=== PATIENT | female | born 1975 | race Caucasian/White ===

== ENCOUNTER 2025-05-20 03:11 | Emergency (ER) | payer OTHER, SELFPAY ==
[2025-05-20] VITALS (10 sets, daily range): BP systolic 108–134; BP diastolic 52–79; PULSE 58–82; RESP 16–18; TEMP 36.4; O2SAT 98–100
--- NOTE | ~2025-05-20 | US_ITS ---
EXAM/PROCEDURE: US transvaginal HISTORY: aub, rlq abd pain COMPARISON: None available. TECHNIQUE: Endovaginal pelvic ultrasound performed LMP: None provided. Heavy bleeding x2 weeks. FINDINGS: The uterus measures 7.9 x 4.6 and 4.9 cm Endometrial stripe: 11.5 mm Nabothian cysts are noted in the cervix and the uterus is heterogeneous in echotexture. Trace amount of fluid in the endometrial canal. Echogenic focus also noted in the fundal portion of uterus measuring 1.4 cm. Right ovary: 2.5 x 1.1 x 2.1 cm. The right ovary appears normal in echotexture and vascular flow. Left ovary: Not visualized. No adnexal mass seen in the images labeled left adnexa. Small amount of free fluid in the posterior cul-de-sac. IMPRESSION: Thickened endometrial stripe with trace amount of fluid of uncertain significance. If endometrial biopsy is not indicated, follow-up pelvic ultrasound in 6-8 weeks recommended or sooner if clinically appropriate. Reviewed, dictated and finalized at location A. H GRADE TEACHER IMPRESSION: Thickened endometrial stripe with trace amount of fluid of uncertain significan ce. If endometrial biopsy is not indicated, follow-up pelvic ultrasound in 6-8 weeks recommended or sooner if clinically appropriate.
--- OUTSIDE RECORDS SUMMARY | 2025-05-20 03:12 | XMS_ITS | Continuity of Care Document ---
Author Name [facility] Organization [facility] Care Team Providers Care Superintendent Automotive Name Role Phone [facility] Unavailable Unavailable Immunizations Combined list of available immunizations from the Department of Defense and Veterans Affairs facilities. Immunization Series Date Given Administered By Site Reaction Lot Number CVX Code Drug Lay Brother Status Comments Source influenza, injectable, quadrivalent, preservative free 2019 ALUL, () Not Given influenza , injectabl e, quadrival ent, preservat rene free [facility] Social History Combined list of available smoking, tobacco, and other social history from Department of Defense and Veterans Affairs facilities. Social History Type Response Date Comment Sour e This section is an empty social history section. [facility]D
--- OUTSIDE RECORDS SUMMARY | 2025-05-20 03:13 | XMS_ITS | Encounter Summary ---
Author Organization [facility] Address [address] [place] [address] Care Team Providers Care Urologist Name Role Phone Quintin Stevenson MD Primary Care Provider [phone] Encounter Details Date Type Department Care Team (Late st Contact Info) Description 11/28/2021 Lab Requisition [facility] [address] [place] [address] Max Junior MD 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 Gender Identity Not on file Sexual Orientation Not on file documented as of this encounter Plan of Treatment Not on file documented as of this encounter Procedures Procedure Name Priority Date/Time Associated Diagnosis Comments DERMATOPATHOLOGY Routine 11/27/2021 12:0 0 AM CDT documented in this encounter Results * DERMATOPATHOLOGY (11/27/2021 12:00 AM CDT) Case Report Dermatopathology Report Case: [id number] Authorizing Provider: Max Junior MD Collected: 11/27/2021 12:00 AM Ordering Location: [facility] Received: 11/28/2021 05:03 PM Pathologist: Henny Singleton MD Specimen: Skin, nasal tip 9:45 AM CDT DERMATOPATHOLOGY LABORATORY Final Diagnosis Specimen A. 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 Path # [id number]. 9:45 AM CDT DERMATOPATHOLOGY LABORATORY Gross Description Specimen A: Received is one formalin filled container labeled with the patient's name and designated nasal tip. The specimen consists of a shave biopsy measuring [id number]. Jar 0. 9:45 AM CDT DERMATOPATHOLOGY LABORATORY Microscopic Description Specimen A. SKIN, nasal tip: There is focal parakeratosis. The lower half of the epidermis shows disorderly maturation of keratinocytes with nuclear pleomorphism. This process extends to the base of the specimen. Adnexal extension of the lesion is seen. Additional deeper sections were obtained and reviewed. COMMENT: A squamous cell carcinoma cannot be ruled out. 9:45 AM CDT DERMATOPATHOLOGY LABORATORY Disclaimer An external and internal positive and negative controls are appropriate for the histochemical, immunohistochemical and immunofluorescence stain(s) in this case (if any), except where stated explicitly. The performance characteristics of the stain(s) cited in this report were developed and its performance characteristic determined by the Dermatopathology Laboratory at [facility], directed by Dr. Rhina Hurley. These tests need not be, and therefore are not, approved by the [place] Food and Drug Administration. The tests are used for clinical purposes. Billing Codes Specimen Charges Stain Charges 78493 1 2 9:45 AM CDT DERMATOPATHOLOGY LABORATORY Embedded Images 9:45 AM CDT DERMATOPATHOLOGY LABORATORY Pathology/Cytolog y TISSUE SPECIMEN FROM SKIN / Unknown 11/27/2021 11/28/2021 5:03 PM CDT us Max Junior MD LAB - PATHOLOGY/CYTOLOGY ORDER MAXIMO Final Result DERMATOPATHOLOGY LABORATORY [facility] - Department of Dermatology [address], [address] [phone] documented in this encounter Visit Diagnoses Not on filedocumented in this encounter Care Teams Urologist Relationship Specialty Start Date End Date Quintin Stevenson MD [address] [address] [place] [address] PCP - General 11/28/21 documented as of this encounter
--- OUTSIDE RECORDS SUMMARY | 2025-05-20 03:13 | XMS_ITS | Clinical Summary ---
Author Organization [facility] Address [address] [address] Care Team Providers Care Merchandising Coordinator Name Role Phone Quintin Stevenson MD Primary Care Provider [phone] Source Comments [facility],non-owned Affiliates and Associated Physician Practices is amultiple site organization consisting of ambulatory clinics and hospital sitesin [place], [place], [place] and [place]. This disclosure is being madepursuant to the Care Everywhere program and may not contain all information available regarding this patient. 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 Gender Identity Not on file Sexual Orientation Not on file Plan of Treatment Health Maintenance Due Date Last Done Comments COLOGUARD (AGES 45-75) - COL ON CA SCREENING 1973 COLON MONITORING 1973 COLONOSCOPY - COLON CA SCREENING 1973 CT COLONOGRAPHY - COLON CA SCREENING 1973 Colorectal Cancer Screening 1973 FIT - COLON CA SCREENING 1973 FLEX SIG - COLON CA SCREENING 1973 LIPID TESTING 1973 MAMMOGRAM 1973 HIV SCREENING 1988 HEPATITIS C SCREENING 10/12/1991 DTAP/TDAP/TD VACCINES (1 - Tdap) 1992 HEPATITIS B VACCINE (1 of 3 - 19+ 3-dose series) 1992 PAP SMEAR 1994 Cervical Cancer Screening 10/17/2003 PAP with HPV 10/17/2003 PNEUMOCOCCAL VACCINE 50+ (1 of 1 - PCV) 10/17/2023 ZOSTER VACCINE (1 of 2) 10/17/2023 DEPRESSION SCREENING 07/07/2024 COVID-19 VACCINE (1 - 2024-2 6 season) 2025 INFLUENZA VACCINE (#1) 2025 HIB VACCINE Aged Out No longer eligi ble based on patient's age to complete this topic HPV VACCINE Aged Out No longer eligi ble based on patient's age to complete this topic MENINGOCOCCAL (Group B) VACC INE SHARED DECISION-MAKING Aged Out No longer eligibl e based on patient's age to complete this topic MENINGOCOCCAL GROUPS A/C/Y/W VACCINE Aged Out No longer eligible b ased on patient's age to complete this topic Insurance Care Teams Merchandising Coordinator Relationship Specialty Start Date End Date Quintin Stevenson MD [address] [address] [place] [address] PCP - General 11/28/21
--- OUTSIDE RECORDS SUMMARY | 2025-05-20 03:13 | XMS_ITS | Clinical Summary ---
Author Organization [facility] Address [address] [place] [address] Care Team Providers Care Worship Leader Name Role Phone Giuseppe Pratt MD Unavailable [phone] BLAISE Pryor Jr., Maxime Foreman Primary Care Provide r Tran Londono MD Unavailable [phone] Allergies Active Allergy Reactions Criticality Noted Date Comments Leflunomide Rash Medium 09/29/2023 Per chart notes Penicillins Hives,Rash Medium 12/19/2008 Medications sulfaSALAzine (AZULFIDINE) 500 mg tabletIndicati ons:Crohn's Disease Take 2 tablets (1,000 mg total) by mouth 2 (two) times a day 360 tablet 3 4 Active syringe with needle (Monoject Syringe) 3 mL 25 x 5/8 syringe Inject b12 1000mcg under the skin every 30 days 3 each 3 4 Active Additional Information Patient not taking.Reported on 05/17/2025 insulin syringe-needle U-100 (Monoject Syringe) 1/2 mL 28 gauge syringe 4 Active BD Integra Syringe 3 mL 25 gauge x 5/8 syringe USE TO INJECT B12 1000MCG UNDER THE SKIN EVERY 30 DAYS 4 Active ondansetron (ZOFRAN) 4 mg tabletIndicati ons:nausea Take 1 tablet (4 mg total) by mouth every 8 (eight) hours as needed for nausea or vomiting 20 tablet 3 4 Active ketorolac (TORADOL) 10 mg tabletIndicati ons:Severe Pain Take 1 tablet (10 mg total) by mouth every 6 (six) hours as needed for pain 20 tablet 1 4 Active Additional Information Patient not taking.Reported on 05/17/2025 ALPRAZolam (XANAX) 0.25 mg tablet Take 1 tab 30 minutes prior to MRI, may repeat once. Do not drive after use. 2 tablet 4 Active Additional Information Patient not taking.Reported on 05/17/2025 cyanocobalamin (Vitamin B-12) 1,000 mcg/mL injectionIndic ations:Vitamin B12 deficiency Inject 1 mL (1,000 mcg total) under the skin every 30 (thirty) days 6 mL 1 4 Active syringe with needle 1 mL 28 gauge x 1/2 syringeIndicat ions:Vitamin B12 deficiency 1 Needle every 30 (thirty) days Please use 1 needle every 30 days to inject Vitamin B 12 injection 12 each 4 Active Additional Information Patient not taking.Reported on 05/17/2025 fluocinolone in oil (DermOtic) 0.01 % drops 5 Active polyethylene glycol [id number] -5.86 gram solution Day before testing: starting at 4 pm drink one 8 oz glass every 15 minutes for a total of 64 oz. Day of testing: Drink remaining 64 oz six to eight hours prior to procedure. 4000 mL 5 Active ubrogepant (Ubrelvy) 100 mg tablet TAKE 1 TABLET(100 MG) BY MOUTH 1 TIME NEEDED FOR MIGRAINE. MAY REPEAT DOSE 1 TIME IN 2 HOURS IF NO RELIEF. DO NOT EXCEED 2 DOSES IN 24 HOURS 10 tablet 2 5 Active ustekinumab (Stelara) 90 mg/mL syringe Inject 1 mL (90 mg total) under the skin every 4 (four) weeks Safety labs are required every 6 months for refills. Next labs are due 09/2025. 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 If she continues to have a lot of bloating, we could consider an empiric course of antibiotics as she has previously struggled with SIBO. We would still recommend a low residue diet. Small bowel obstruction 11/05/2022 Major depressive disorder, r ecurrent episode, in full remission 09/24/2022 Healthcare maintenance 05/07/2022 Overview (02/25/2023): Immunizations: Influenza yes Pneumococcus recommend prevnar 20 Zoster rec shingrix HBV vaccinated Covid yes Cervical cancer screening: routine follow up with director of partner marketing Skin cancer screening: follows with derm for psoriasis Bone health: DEXA: normal 2022. Vitamin D normal 2022 CRC screening: only ileal disease, but FH. Q 5 years but will likely get more often for disease activity. Assessment & Plan (02/25/2023 11:40 AM CDT): She is going to check with her PCP for shingrix and prevnar 20 Assessment & Plan (08/20/2022 9:30 AM LOAN EXPEDITOR): Schedule c scope Assessment & Plan (05/07/2022 11:13 AM CDT): Check vitamin D DEXA Recommend covid booster, shingrix, prevnar 20 Crohn's disease of small intestine without compl ication 03/06/2022 Overview (07/13/2024): Year of diagnosis: 2019. Year symptoms began: 2019. Phenotype: Inflammatory (B1) without perianal disease. Distribution: ileal (L1) without upper GI disease (L4). Extraintestinal manifestations: Juvenile arthritis, psoriasis (both preceded Crohn's diagnosis). Complications: partial SBO 2018. Prior surgeries: None. Prior treatments: Budesonide (also treated with Humira for BRANDY and psoriasis prior to Crohn's diagnosis). Current treatment: Stelara q 8 weeks. TPMT: ? 2019 EGD showed gastric ulcer while on NSAIDs Seen by [facility] for longstanding bloating, constipation 08/02/2011 EGD normal Path: normal stomach and duodenal biopsies Breath test apparently positive for SIBO. Treated with rifaxamin with improvement. 2018 developed Fe def anemia. 08/25/2018 EGD normal Path Duodenum normal Stomach: chronic antral gastritis, unspecified, mild. No acute inflammation. H pylori negative. 08/25/2018 Colonoscopy A few erosions at ICV A few ulcers in the TI Normal colon Path: Ileum: ulceration with mixed inflammation ICV: active chronic ileitis Colon: normal 09/29/2018 VCE Several erosions and ulcers in the distal ileum. Remainder of small bowel normal. Prometheus testing not suggestive of Crohn's. Thought ileal inflammation was due to NSAIDs 01/11/2019 admitted with partial SBO. Treated conservatively with NGT. No steroids. Thought d/t adhesions from CCK. 01/09/2019 CT IMPRESSION: 1. Multiple mildly dilated loops of fluid-filled small bowel, predominantly midline abdomen to left mid abdomen, favoring a partial small-bowel obstruction with transition point likely in the left upper quadrant-left mid abdomen with an associated small volume of abdominopelvic free fluid. 2. Cholecystectomy. 03/2019 breath test apparently negative for SIBO. Treated with budesonide for 3 months with follow up CTE. 08/05/2019 CTE Wall thickening of the terminal ileum may reflect chronic inflammation. Segment of ileum immediately proximal to this is completely decompressed. A stricture cannot be excluded. No acute surrounding inflammation. No definite abscess. 11/26/2019 Colonoscopy A few ulcers in the TI Normal colon Path: TI: ileitis with erosions The TI biopsy shows mild mixed inflammation with erosions. No granulomas. 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 However, similar findings may also be seen in Crohn's. Colon: normal 12/13/2019 Switched from Orencia to Stelara to treat Crohn's, RA and psoriasis 08/07/2020 Colonoscopy Normal TI Normal colon Path: normal TI biopsies and normal colon biopsies /11/06/2021 Still some abdominal discomfort, diarrhea. Low Fe. Treated with 3 months of budesonide with plans for follow up CTE. 03/05/2022 CTE No evidence of acute inflammation. Mild fat deposition in the terminal ileum which is probably sequela from prior inflammation seen on prior CT. The previously seen inflammatory changes have resolved. There is no stricture or evidence of obstruction. No skip lesions. No hyperenhancing or hypoenhancing segments. 03/19/2022 FC 52 07/28/2022 admitted with SBO Treat with NG, IV steroids, discharged on prednisone 07/28/2022 CT GI: Diffuse moderate fluid distention of small-bowel with transition point in the right lower quadrant on series 2, image 127. Distal to the transition point, small bowel loops are decompressed with mild wall thickening to the level of the ileocecal valve. Normal appendix. No significant diverticular disease. IMPRESSION: 1. Small-bowel obstruction with transition point in the right lower quadrant in the distal ileum, possibly secondary to fibrostenotic Crohn's disease. This was relayed to Cassandra WELSH at 5:25 p.m. on 07/28/2022. 09/03/2022 Ustekinumab level 6.4 10/25/2022 Colonoscopy Normal TI. No stricture. Normal colon. Colon biopsies normal. 11/05/2022 Admit for SBO 11/05/2022 CT 1. Mild severity small bowel obstruction at distal ileal stricture. The active inflammation noted on the prior July 2022 examination has resolved/improved. There may be mild/borderline active inflammation at the stricture transition point. Overall the degree of bowel dilation is improved compared to July 2022. On further review, there is an area of mid to distal ileum that is mildly hyperenhancing and consistent with active inflammation. This is noted in just the left of midline on image 172. It does not have stricture level dilation upstream of this. The stricture described in the original report is approximately 20 to 25 cm from the ileocecal valve. Overall, this is consistent with skip Crohn inflammation with the stricture as transition point of this mild small bowel obstruction. The degree of active inflammation, as before, has improved since the July 2022 prior. Improved without steroids 11/08/2022 Lower Device-Assisted Enteroscopy without Fluoroscopy The ileum, 25 cm from the ileocecal valve and ileum, 40 cm from the ileocecal valve contained a benign-appearing, intrinsic moderate stenosis measuring less than one cm (in length) x 9 mm (inner diameter). The distal stricture was dilated. A TTS dilator was passed through the scope. Dilation with a 12-13.5-15 mm colonic balloon dilator was performed. Biopsies were taken with a cold forceps for histology. The stricture was traversed. However, the proximal stricture could not be dilated due to scope angulation and inability to pass the TTS balloon down the working channel. Biopsies were taken. Area 5 cm distal to the more distal stricture was tattooed with an injection of 3 mL of [place]il[place] ink. Multi-focal short segment ileal strictures in the ileum, 25 cm from the ileocecal valve and in the ileum, 40 cm from the ileocecal valve. The distal stricture was dilated to 15 mm, however the more proximal stricture could not be intervened on due to inability to pass the TTS balloon through the working channel (secondary to scope angulation). Strictures were biopsied. An area 5 cm distal to the distal stricture was tattooed. Path A. Small bowel, proximal stricture, biopsy - Small intestinal mucosa with mild reactive epithelial changes B. Small bowel, distal stricture, biopsy - Small intestinal mucosa with acute ileitis and ulceration Tolerating low residue diet Discuss sine MRI to evaluate strictures 05/22/2023 SBE - Multifocal short segment ileal strictures located 20 cm, 40 cm, and 45 cm from the ileocecal valve with skip area of normal mucosa. These could be seen with Crohn's ileitis, NSAID use, or other etiology. Dilated to 14-15 mm and biopsied. - Limited colonoscopic examination revealed normal mucosa throughout visualized portations. Path A. Small intestine, terminal ileum, biopsy: - Ileal mucosa with mildly dilated lacteals, otherwise with no significant abnormality. B. Small intestine, ileum, proximal stricture, biopsy: - Ileal mucosa with no significant abnormality. C. Small intestine, ileum, middle stricture, biopsy: - Ileal mucosa with active ileitis (ulceration and cryptitis). - Results of cytomegalovirus (CMV) immunostain will be reported in an addendum. D. Small intestine, ileum, distal stricture, biopsy: - Ileal mucosa with inactive chronic ileitis with crypt distortion and focal pyloric gland metaplasia. Diagnosis Comment The patient's clinical history of ulcerative colitis is noted. All biopsies are negative for dysplasia and granulomas. Part A: The histologic finding of dilated lacteals, although nonspecific, have been associated with obstruction. 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 05/24/2024 Retrograde balloon enteroscopy - Crohn's ileitis (SES-CD:6) with multifocal strictures in the distal ileum (described above) with improved caliber following prior dilation. Further treatment was performed at all sites to 15 mm. Path A. Ileal stricture, biopsy - Small intestinal mucosa with mildly active chronic ileitis. B. Terminal ileum, biopsy - Small intestinal mucosa with no significant pathologic change. C. Right colon, biopsy - Colonic mucosa with no significant pathologic change. D. Left colon, biopsy - Colonic mucosa with no significant pathologic change. Assessment & Plan (02/01/2025 5:27 PM CDT): The patient had 3 strictures dilated to 15 mm on her May 24, 2024 colonoscopy. As she is having some troubles with constipation and bloating again, we would plan to repeat her colonoscopy again in May. As this was previously done by Dr. Zane Aguilera, we will see if 1 of our advanced endoscopist can perform this procedure. We would recommend that she continue Stelara and sulfasalazine for the foreseeable future. If she appears to be failing this therapy, she may benefit from an IL 23 inhibitor like Skyrizi or Tremfya. We will continue to monitor her labs per protocol She can try using a soluble fiber, increasing her fluids, and using a tsp of MiraLax daily and adjusting the dose to her needs Assessment & Plan (07/13/2024 4:02 PM LOAN EXPEDITOR): Endoscopic remission on stelara with primarily fibrotic strictures that have been successfully dilated. Continue stelara indefinitely. Repeat enteroscopy with dilation with Dr. Degroot in one year as planned. Assessment & Plan (01/06/2024 2:11 PM CDT): Clinical remission on stelara. No more obstructive symptoms after dilations. Continue stelara. Repeat c scope in May with Dr. Zane for repeat dilation. 2 day prep. Extra miralax for 2 weeks prior. Assessment & Plan (06/17/2023 1:26 PM LOAN EXPEDITOR): Asymptomatic after stricture dilation. Tolerating more foods. Discussed that this could be Crohn's, Cryptogenic multifocal ulcerous stenosing enteritis (CMUSE) or residual strictures from years of heavy NSAID use. Will ask our pathologist to review. Regardless, will treat the same. The mucosa between the strictures is normal and stelara is controlling arthritis and psoriasis, so she should continue. Will repeat scope with dilations one year from the last one. MRE without prestenotic dilation so predicts good response to dilation. If she has another obstruction, will discuss resection. RTC 6 mos. Assessment & Plan (02/25/2023 1:16 PM CDT): Stricturing ileal Crohn's with multiple SBOs. She is still having mild obstructive symptoms and is still on a low residue diet. Her balloon enteroscopy showed two strictures, only one of which could be dilated because of issues reaching the proximal one. MRE shows only one stricture without upstream dilation even on CINE images. This is good but it doesn't mean she won't obstruct with a heaver diet. Based on the endoscopic appearance and imaging I think these are likely predominantly fibrotic. The rest of the ileum looks normal and ustekinumab is controlling her arthritis so I don't want to switch unless I was sure it wasn't working. I think the stricture has probably been there for years when she had previous obstructions, it was just missed because it was too proximal. I discussed three options 1) do nothing until if/when she obstructs, 2) refer for SBR (this would likely be a small resection but obviously always carries risks), or 2) repeat a balloon enteroscopy with dilation. I recommend #3 and she that is what she prefers. I discussed her case with Dr. Aguilera and Dr. Vasquez. -Continue ustekinumab -Will reach out to Dr. Aguilera for repeat dilation -RTC 4 mos Assessment & Plan (11/25/2022 1:30 PM CDT): I think these are fibrotic strictures and I think they have been there for awhile, they just were unable to be reached with a regular colonoscope. The distal one may have even been from NSAIDs because it has a diaphragm appearance. Regardless, she has documented ileal ulcers well after a year off of NSAIDs, and this ileitis resolved after she went on Stelara. So I think Stelara is working. The fact that the obstruction resolved without steroids is consistent with this. She has two strictures. The distal one was dilated to 15 mm, the balloon couldn't be delivered to the proximal one. It's unclear if the dilation helped because she hasn't advanced her diet. We discussed with Dr. Degroot and radiology. We are going to do an MRE with specialized sequences to see if we can get a sense of the significance of both. Depending on the results we may try dilating the proximal one or advancing diet and if she obstructs send to surgery. They are pretty far from each other and in between the bowl looks good, so if she needs surgery maybe to small SBR or stricturoplasties will suffice. Assessment & Plan (08/20/2022 9:32 AM LOAN EXPEDITOR): Recent admit with SBO with transition point in distal ileum. Resolved with steroids. Given imaging findings suspect this was from active Crohn's rather than adhesions. The fact that her recent CTE showed no prestenotic dilation and she improved with steroids suggests significant inflammatory component rather than a fibrotic stricture. So hopefully can avoid surgery, though I discussed with her this may be needed in future. Will continue steroid taper and schedule a colonoscopy after. Check stelara level to see if she has antibodies given low level previously. -Continue steroid taper by 5 mg/week -Check stelara level -Schedule colonoscopy -Check Fe levels. She was anemic in the hospital. She has had low Fe with active disease in the past. -Continue low residue diet -Refer to GI psychologist Assessment & Plan (05/07/2022 3:31 PM CDT): In remission based on imaging. Anemia has resolved. Continue Stelara q 4 weeks. If she continues to do well will likely do another colonoscopy next year. Assessment & Plan (03/06/2022 12:01 PM CDT): Ileal Crohn's complicated by Fe def anemia and partial SBO. She continues to have what sounds like obstructive symptoms which could indicate a stricture or active inflammation. I agree with the CTE that she is getting today. Will also check a Stelara level to see if there is room to go up. Pending the CTE will recommend a colonoscopy. If there is a stricture it may respond to dilation. I discussed a low residue diet. She can get the colonoscopy with her local GI or with us. Her interventional radiology technologist is prescribing Stelara. If she has inflammation will need to have discussion with rheum since Stelara seems to be controlling her other autoimmune diseases. Iron deficiency anemia 10/02/2020 Assessment & Plan (08/20/2022 9:28 AM LOAN EXPEDITOR): Has required IV Fe in the past. Follows with heme. Check Fe levels. She was anemic in the hospital Assessment & Plan (03/06/2022 11:43 AM CDT): Suspect GI loss from Crohn's. Celiac serology negative and duodenal biopsies negative on multiple occasions. Has not had IV Fe in awhile and last c scope looked ok so hopefully Stelara is working. Getting CT and C scope to assess. Follow up with hematology for Fe infusions as needed. Hx SBO 01/18/2019 Assessment & Plan (01/18/2019 12:54 PM CDT): Continue to follow with GI Stay hydrated Update with us with any changes Call for questions or concerns Acute deep vein thrombosis (DVT) of right upper extremity 01/18/2019 Assessment & Plan (01/18/2019 12:55 PM CDT): Continue eliquis With RUE DVT, may need anticoagulation for 6 months Recheck in 3-6 months Call for questions or concerns Partial small bowel obstruction 01/18/2019 Assessment & Plan (01/18/2019 1:53 PM CDT): Continue to follow with GI Continue to monitor symptoms Call if symptoms change or worsen Psoriatic arthritis 06/09/2018 Assessment & Plan (11/25/2022 1:34 PM CDT): Controlled on stelara. I don't want to switch unless it clearly is not working for her crohn's or psoriatic arthritis. BRANDY (juvenile idiopathic arthritis) 03/17/2018 Assessment & Plan (02/01/2025 5:24 PM CDT): The patient will continue to follow closely with rheumatology. Assessment & Plan (07/13/2024 4:02 PM LOAN EXPEDITOR): Stable. Follows with rheum. Acquired hallux valgus 04/26/2015 Neck pain 03/06/2015 Psoriasis 08/22/2014 Arthralgia of ankle 05/31/2013 Gastroesophageal reflux disease 06/25/2011 High risk medications (not anticoagulants) long- term use 11/03/2010 Assessment & Plan (02/01/2025 5:25 PM CDT): The patient is encouraged to continue close follow-up with her care team and stay up-to-date vaccinations. Hopefully her blood work for Hematology can be coordinated with our blood work as there is likely some overlap. Assessment & Plan (07/13/2024 12:57 PM LOAN EXPEDITOR): All immunosuppressants carry a theoretical risk of infection, though ustekinumab is among the safest. We recommend the patient get all available vaccinations, including the pneumococcus series, covid19 and annual influenza. We monitor CBC and HFP q 3 months for cytopenias and hepatotoxicity. Assessment & Plan (01/06/2024 11:31 AM CDT): All immunosuppressants carry a theoretical risk of infection, though ustekinumab is among the safest. We recommend the patient get all available vaccinations, including the pneumococcus series, covid19 and annual influenza. We monitor CBC and HFP q 3 months for cytopenias and hepatotoxicity. Assessment & Plan (06/17/2023 1:20 PM LOAN EXPEDITOR): All immunosuppressants carry a theoretical risk of infection, though ustekinumab is among the safest. We recommend the patient get all available vaccinations, including the pneumococcus series, covid19 and annual influenza. We monitor CBC and HFP q 3 months for cytopenias and hepatotoxicity. Assessment & Plan (02/25/2023 11:41 AM CDT): Risk of infection with stelara. Monitor cbc, cmp for toxicity. Minimize steroids. Assessment & Plan (08/20/2022 9:28 AM LOAN EXPEDITOR): Risk of infection with stelara. Monitor cbc, cmp for toxicity. Tapering steroids to minimize toxicity. Assessment & Plan (05/07/2022 3:32 PM CDT): On Stelara. Low risk of infection. Monitor CBC, HFP for toxicity. Rheumatoid arthritis 11/03/2010 Assessment & Plan (01/18/2019 1:53 PM CDT): Continue to follow with Rheumatology Call for questions or concerns Resolved Problems Problem Noted Date Diagnosed Date Resolved Date Crohn's disease of both smal l and large intestine with other complication 04/18/20232024 Social anxiety disorder 09/24/202203/07 Generalized anxiety disorder 09/24/2022 03/20/2023 Crohn's disease with complic ation, unspecified gastrointestinal tract location 07/28/2022 02/03/2023 Iron deficiency anemia due t o chronic blood loss 02/18/2019 02/03/2023 Anxiety 01/18/2019 02/03/2023 Assessment & Plan (01/18/2019 12:55 PM CDT): Will do a trial of atarax Consider buspar if no improvement Use support structures she has in place Call for questions or concerns Stress 12/10/2016 11/26/2022 03/20/2023 Need for immunization against influenza 06/19/2015 02/03/2023 Encounter for preventive health examination 12/16/2008 02/03/2023 Encounters Date Type Department Care Team Description 05/17/2025 10:00 AM LOAN EXPEDITOR Lab [address] [address] Iron deficiency anemia due to chronic blood loss; Vitamin B12 deficiency 05/17/2025 9:45 AM LOAN EXPEDITOR Office Visit [facility] Medicine Obstetrics and Gynecology [address] [facility] [address] [place] [address] Abbey Ballard NP Encounter for well woman exam with routine gynecological exam (Primary Dx); Encounter for screening mammogram for malignant neoplasm of breast; Genitourinary syndrome of menopause 05/16/2025 Telephone [facility] [address] [place] [address] Tete Matthews, RN GI Preprocedure 04/22/2025 1:46 PM CDT - 04/22/2025 11:59 PM CDT Hospital Encounter [facility] [address] [place] [address] Postmenopausal bleeding Discharge Disposition: Discharge to home or self care 04/21/2025 Telephone [facility] Neu[facility] [address] [facility] [facility] [address] [place] [id number] Katie Quinones NP Prior Auth (Ubrelvy 100MG) 04/05/2025 Telephone [facility] [address] [facility] Medical Office Building 4, [address] [place] [address] Millie Feliz, LLOYD Follow-up 03/22/2025 11:00 AM CDT Office Visit [facility] Rheumatology [address] [facility] 2nd Floor [address] [place] [address] Dina Argueta MD Seronegative inflammatory arthritis (Primary Dx) 03/08/2025 11:20 AM CDT Lab [facility] Medical Office Building [address] [place] [address] Crohn's disease with complication, unspecified gastrointestinal tract location (HCC); High risk medications (not anticoagulants) long-term use 03/08/2025 Telephone [facility] Medicine Gastroenterology [facility] 12th [place] [address] [place] [address] Nerissa Harrington 03/08/2025 Telephone [facility] [address] [facility] [address], [address] [place] [address] Sophia Rodriguez, DO GI Preprocedure 03/08/2025 Telephone [facility] [address] [facility] [address], [address] [place] [phone] Machelle Risa ChachoDena CUSTOM FURRIER 03/08/2025 Telephone [facility] [address] [place] [address] Medical Office Building 4, [address] [place] [address] Nga Almonte RMA 02/24/2025 10:00 AM CDT Clinical Support [facility] [address] [facility] [address] [place] [address] Need for vaccination (Primary Dx) 02/24/2025 9:20 AM CDT Lab [facility] Office Building [address] [place] [address] Crohn's disease with complication, unspecified gastrointestinal tract location (HCC) from Last 3 Months Immunizations Immunization Administration Dates Next Due Hep A, Adult 06/11/2018 Influenza, Quadrivalent, Spl it, Preservative Free, Intramuscular 03/24/2023,03/01/2020 Influenza, Trivalent, Preser vative Free, Intramuscular 06/19/2015,06/13/2008 Influenza, Unspecified 04/06/2024(Deferr ed: Patient Refused),05/12/2022,04/08/2022(Deferre d: Patient Refused),03/01/2020 Moderna SARS-CoV-2 Monovalen t Vaccination (12+ YRS) 10/26/2020,09/28/2020 PPD TEST 11/03/2020 Pneumococcal Conjugate Pcv20 10/26/2024 Tdap 06/11/2018 ZOSTER Recombinant 02/24/2025,10/26/2024 Surgical History Surgery Date Site/Laterality Comments ANKLE ARTHRODESIS 07/07/2013 - 07/06/2014 Right Complex with correction of deformity CHOLECYSTECTOMY 07/07/2002 - 07/06/2003 FOOT SURGERY 07/07/2014 - 07/06/2015 Right bunion/toe fusions COLONOSCOPY Medical History Medical History Date Comments Personal history of other di seases of the digestive system History of esophageal reflux - (Added by TW Conv) Shoulder pain, right Hx SBO 01/18/2019 Acute deep vein thrombosis ( DVT) of right upper extremity ([facility]) 01/18/2019 Anxiety 01/18/2019 BRANDY (juvenile idiopathic art hritis) ([facility]) 03/17/2018 Rheumatoid arthritis(714.0) 11/03/2010 Psoriasis 08/22/2014 Anemia Arthritis Depression Crohn disease ([facility]) 12/2019 Family History Medical History Relation Name Comments Cancer Maternal Grandmother Colon cancer Mother Hypertension Mother Hearing loss Paternal Grandfather Hypertension Paternal Grandfather Asthma Paternal Grandmother Cancer Paternal Grandmother Hypertension Paternal Grandmother Asthma Son Relation Name Status Comments Father Alive Maternal Grandmother Mother Alive Paternal Grandfather Paternal Grandmother Son Social History Tobacco Use Types Packs/Day Years Used Date Smoking Tobacco: Never Passive Smoke Exposure: Never Smokeless Tobacco: Never Tobacco Cessation:Counseling Given: Not Answered Alcohol Use Standard Drinks/Week Comments Yes 0 (1 standard drink = 0.6 oz pur e alcohol) PHQ-2 Answer Date Recorded PHQ-2 Total Score (If total score is 3 or more points, staff should administer the PHQ-9) 0 02/03/2023 AUDIT-C Answer Date Recorded Q1: How often do you have a drink containing alc ohol? Monthly or less 05/17/2025 Q2: How many drinks containi ng alcohol do you have on a typical day when you are drinking? 1 or 2 05/17/2025 Q3: How often do you have si x or more drinks on one occasion? Never 05/17/2025 Personal Safety Answer Date Recorded Have you ever been in or are you currently in a harmful physical or emotional relationship or is someone making you feel afraid or unsafe? Denies 05/24/2024 Comments No Sex and Gender Information Value Date Recorded Sex Assigned at Not on file Legal Sex Female 8:25 PM LOAN EXPEDITOR Gender Identity Not on file Sexual Orientation Not on file Obstetrics History Para Term AB IAB SAB Ectopic Multiple Livin g Live Births 4 4 4 Date Outcome GA Total Labor Labor/2nd/3rd Weight Sex Type Anes PTL Lucrecia A1 A5 Name Clin Term Term Term Term Last Filed Vital Signs Vital Sign Reading Time Taken Comments Blood Pressure 142/85 05/17/2025 9:50 AM LOAN EXPEDITOR Pulse 81 05/17/2025 9:50 AM LOAN EXPEDITOR Temperature 36.9 C (98.5 F) 03/22/2025 10:39 AM CDT Respiratory Rate 13 05/24/2024 10:16 AM LOAN EXPEDITOR Oxygen Saturation 100% 03/22/2025 10:39 AM CDT Inhaled Oxygen Concentration - - Weight 67.7 kg (149 lb 3.2 oz) 05/17/2025 9:50 A M LOAN EXPEDITOR Height 167.6 cm (5' 6) 05/17/2025 9:50 AM LOAN EXPEDITOR Body Mass Index 24.08 05/17/2025 9:50 AM LOAN EXPEDITOR Plan of Treatment Upcoming Encounters Date Type Department Care Team (Late st Contact Info) Description 05/23/2025 8:00 AM LOAN EXPEDITOR Hospital Encounter [facility] [place] [id number] [address] Sophia Rodriguez DO [address] [address] 05/23/2025 8:00 AM LOAN EXPEDITOR - 05/23/2025 9:30 AM LOAN EXPEDITOR Surgery [facility] [place] [address] [address] Sophia Rodriguez DO [address] [address] Retro SBE Scheduled Procedures Name Priority Associated Diagnoses Date/Ti me SMALL BOWEL ENDOSCOPY Stricture intestinal Crohn's disease with complication, unspecified gastrointestinal tract location (HCC) 05/23/2025 8:00 AM LOAN EXPEDITOR Health Maintenance Due Date Last Done Comments Cervical Cancer Screening 1975 Depression Screening 02/04/2024 02/03/2023, 02/24/2020, 01/18/2019 Covid-19 Vaccine ( season) 2025 05/13/2022, 03/01/2021, 10/26/2020, Additional history exists Influenza Vaccine (#1) 2025 , 05/12/2022, 03/01/2020, Additional history exists Breast Cancer Screening-Mammogram 12/24/2025 12/24/2024, 11/11/2023, 11/21/2022, Additional history exists Regular Well Visit/Exam 18-64 05/17/2026 05/17/2025, 03/12/2023 DTaP/Tdap/Td Vaccine (2 - Td or Tdap) 06/11/2028 06/11/2018 Colon Cancer Screening-Colonoscopy 10/25/2032 10/25/2022, 08/07/2020, 11/26/2019 Hepatitis C Screening Completed 03/06/2015 Hepatitis B Screening Completed 01/23/2024 Pneumococcal vaccine <65 Aged Out 10/26/2024 No longer eligible based on patient's age to complete this topic Zoster Vaccine Completed 02/24/2025, 10/26/2024 Procedures Procedure Name Priority Date/Time Associated Diagnosis Comments EGFR Routine 05/17/2025 10:30 AM LOAN EXPEDITOR Iron deficiency anemia due to chronic blood loss Vitamin B12 deficiency DIFFERENTIAL AUTO Routine 05/17/2025 10:30 AM LOAN EXPEDITOR Iron deficiency anemia due to chronic blood loss Vitamin B12 deficiency COMPREHENSIVE METABOLIC PANEL Routine 05/17/2025 10:30 AM LOAN EXPEDITOR Iron deficiency anemia due to chronic blood loss Vitamin B12 deficiency CBC WITH AUTO DIFFERENTIAL Routine 05/17/2025 10:30 AM LOAN EXPEDITOR Iron deficiency anemia due to chronic blood loss Vitamin B12 deficiency IRON PROFILE W/ IBC Routine 05/17/2025 10:30 AM LOAN EXPEDITOR Iron deficiency anemia due to chronic blood loss FERRITIN Routine 05/17/2025 10:30 AM LOAN EXPEDITOR Iron deficiency anemia due to chronic blood loss Vitamin B12 deficiency VITAMIN B12 Routine 05/17/2025 10:30 AM LOAN EXPEDITOR Vitamin B12 deficiency US PELVIS W ENDOVAGINAL Schedule Routine, Read Routine (OP Routine) 04/22/2025 2:09 PM CDT Postmenopausal bleeding EGFR Routine 03/08/2025 11:28 AM CDT High risk medications (not anticoagulants) long-term use Crohn's disease with complication, unspecified gastrointestinal tract location (HCC) DIFFERENTIAL AUTO Routine 03/08/2025 11:28 AM CDT High risk medications (not anticoagulants) long-term use Crohn's disease with complication, unspecified gastrointestinal tract location (HCC) CBC WITH AUTO DIFFERENTIAL Routine 03/08/2025 11:28 AM CDT High risk medications (not anticoagulants) long-term use Crohn's disease with complication, unspecified gastrointestinal tract location (HCC) COMPREHENSIVE METABOLIC PANEL Routine 03/08/2025 11:28 AM CDT High risk medications (not anticoagulants) long-term use Crohn's disease with complication, unspecified gastrointestinal tract location (HCC) CRP (ACUTE PHASE) Routine 03/08/2025 11:28 AM CDT Crohn's disease with complication, unspecified gastrointestinal tract location (HCC) TB TEST, QUANTIFERON GOLD Routine 02/24/2025 9:26 AM CDT VITAMIN D 25 HYDROXY Routine 02/24/2025 9:26 AM CDT Crohn's disease with complication, unspecified gastrointestinal tract location (HCC) SCREENING MAMMOGRAM BILATERAL W JASSON Schedule Routine, Read Routine (OP Routine) 12/24/2024 3:49 PM CDT Screening mammogram, encounter for COLONOSCOPY 10/25/2022 8:31 AM CDT SERUM HEPATITIS C AB Routine 03/06/2015 11:24 AM CDT from Last 3 Months or Most Recently Relevant to Health Maintenance Results * eGFR (05/17/2025 10:30 AM LOAN EXPEDITOR) eGFR >90 >=60 mL/min/1. 73 m2 Comment: Interpretive Data Reference Interval Normal >/= 90 mL/min/1.73m2 Mildly decreased* 60 - 89 mL/min/1.73m2 Mildly to moderately decreased 45 - 59 mL/min/1.73m2 Moderately to severely decreased 30 - 44 mL/min/1.73m2 Severely decreased 15 - 29 mL/min/1.73m2 Kidney Failure < 15 mL/min/1.73m2 *Relative to young adult level Estimated glomerular filtration rate is determined by the 2020 CKD-EPI equation recommended by the National Kidney Foundation (A Unifying Approach to GFR Estimation: Recommendations of the NKF-ASK Task Force on Reassessing the Inclusion of Race in Diagnosing Kidney Disease, JASN 202). The CKD-EPI equation should not be used for patients with unstable renal function and has not been validated in children and those over 70. Current interpretive data was last reviewed 2021. Blood 05/17/2025 10:3 0 AM LOAN EXPEDITOR 05/17/2025 10:30 AM LOAN EXPEDITOR us May Madelin Hinton CORNER BLOCK CUTTER LAB BLOOD ORDER MAXIMO Final Result [facility] Department [place] [address] * (ABNORMAL) Differential, auto (05/17/2025 10:30 AM LOAN EXPEDITOR) Pathologist [facility] Neutrophil abs 7.31(H) 1.50 - 6.50 K/cumm Comment:Testing performed by : [facility], [address] [place] [address] Imm gran abs 0.03 0.00 - 0.10 K/cumm [facility] Lymphocyte abs 1.36 0.80 - 3.30 K/cumm [facility] Monocyte abs 0.56 0.20 - 0.80 K/cumm [facility] Eosinophil abs 0.08 0.00 - 0.50 K/cumm [facility] Basophil abs 0.05 0.00 - 0.10 K/cumm [facility] Neutrophil pct 77.8 % [facility] Comment: Interpretive Data Percent cell count reference ranges are not reported, since discordance with absolute values may lead to misinterpretation of CBC data. Current Interpretive Data was last revised on 2017. Imm gran pct 0.3 % [facility] Comment: Interpretive Data Percent cell count reference ranges are not reported, since discordance with absolute values may lead to misinterpretation of CBC data. Current Interpretive Data was last revised on 2017. Lymphocyte pct 14.5 % [facility] Comment: Interpretive Data Percent cell count reference ranges are not reported, since discordance with absolute values may lead to misinterpretation of CBC data. Current Interpretive Data was last revised on 2017. Monocyte pct 6.0 % [facility] Comment: Interpretive Data Percent cell count reference ranges are not reported, since discordance with absolute values may lead to misinterpretation of CBC data. Current Interpretive Data was last revised on 2017. Eosinophil pct 0.9 % [facility] Comment: Interpretive Data Percent cell count reference ranges are not reported, since discordance with absolute values may lead to misinterpretation of CBC data. Current Interpretive Data was last revised on 2017. Basophil pct 0.5 % [facility] Comment: Interpretive Data Percent cell count reference ranges are not reported, since discordance with absolute values may lead to misinterpretation of CBC data. Current Interpretive Data was last revised on 2017. Blood 05/17/2025 10:3 0 AM LOAN EXPEDITOR 05/17/2025 10:30 AM LOAN EXPEDITOR us May Madelin Carlito [place] [employer]NER BLOCK CUTTER LAB BLOOD ORDER MAXIMO Final Result [facility] Department [place] [address] * Iron profile w/ IBC (05/17/2025 10:30 AM LOAN EXPEDITOR) Iron 99 35 - 145 mcg/dL TIBC 331 250 - 400 mcg/dL [facility] Transferrin saturation 30 20 - 50 % [facility] Blood 05/17/2025 10:3 0 AM LOAN EXPEDITOR 05/17/2025 11:35 AM LOAN EXPEDITOR us May Madelin Carlito [place] [employer]TER LAB BLOOD ORDER MAXIMO Final Result [facility] [place] [address] * (ABNORMAL) CBC with auto differential (05/17/2025 10:30 AM LOAN EXPEDITOR) [facility] Signature WBC 9.39 3.80 - 9.90 K/cumm Comment:Testing performed by : [address] [address] Hgb 13.4 11.9 - 15.5 g/dL [facility] Comment:Testing performed by : [address] [address] Hct 39.6 35.6 - 45.5 % [facility] Comment:Testing performed by : [address] [address] Plt 323 150 - 400 K/cumm [facility] Comment:Testing performed by : [address] [address] MPV 10.8 9.1 - 12.3 fL [facility] RBC 4.47 3.90 - 5.20 M/cumm [facility] MCV 88.6 81.3 - 96.4 fL [facility] MCH 30.0 27.1 - 33.3 pg [facility] MCHC 33.8 32.3 - 35.7 g/dL [facility] RDW CV 12.3 11.1 - 14.9 % [facility] RDW SD 39.7 35.7 - 48.1 fL [facility] NRBC abs 0.00 0.00 - 0.01 K/cumm [facility] ANC Prelim 7.31(H) 1.50 - 6.50 K/cumm [facility] Comment: Interpretive Data The rapid ANC is a preliminary automated count and may vary from the final ANC (Neut Abs) reported in the WBC differential that follows. Current interpretive data was last revised 2024. Blood 05/17/2025 10:3 0 AM LOAN EXPEDITOR 05/17/2025 10:30 AM LOAN EXPEDITOR us May Madelin Carlito [place] [employer] BLOCK CUTTER LAB BLOOD ORDER MAXIMO Final Result [facility] [place] [address] * Ferritin (05/17/2025 10:30 AM LOAN EXPEDITOR) Pathologist [facility] Ferritin 41 13 - 150 ng/mL Blood 05/17/2025 10:3 0 AM LOAN EXPEDITOR 05/17/2025 11:35 AM LOAN EXPEDITOR us May Madelin Carlito [place] [employer]NER BLOCK CUTTER LAB BLOOD ORDER MAXIMO Final Result Performing Organization Address City/[facility]/ZIP Co de Phone Number [facility] Department [place] [address] * Vitamin B12 (05/17/2025 10:30 AM LOAN EXPEDITOR) Pathologist [facility] Vitamin B12 340 230 - 1,250 pg/mL Blood 05/17/2025 10:3 0 AM LOAN EXPEDITOR 05/17/2025 11:35 AM LOAN EXPEDITOR us May Madelin Carlito [place] [employer] C[employer]TER LAB BLOOD ORDER MAXIMO Final Result Performing Organization Address City/[facility]/ZIP Co de Phone Number [facility] Department [place] [address] * Comprehensive metabolic panel (05/17/2025 10:30 AM LOAN EXPEDITOR) [facility] Sodium 140 135 - 145 mmol/L Comment:Testing performed by : [facility], [address] [place] [address] Potassium, pl 4.1 3.3 - 4.9 mmol/L [facility] Chloride 105 97 - 110 mmol/L [facility] CO2 27 22 - 32 mmol/L [facility] Anion gap 8 2 - 15 mmol/L [facility] BUN 19 6 - 25 mg/dL [facility] Creatinine 0.67 0.60 - 1.10 mg/dL [facility] Glucose 88 70 - 199 mg/dL [facility] Comment: Interpretive Data Fasting glucose >/= 126 mg/dl is diagnostic for diabetes. Fasting is defined as no caloric intake for at least 8 hours. Fasting glucose between 100 mg/dl to 125 mg/dl is diagnostic of prediabetes. In a patient with classic symptoms of hyperglycemia or hyperglycemic crisis, a random glucose >/= 200 mg/dl is diagnostic for diabetes. In the absence of unequivocal hyperglycemia, results should be confirmed by repeat testing. The classification and Diagnosis of Diabetes Diabetes Care 2021; 46: S19-S40. Current interpretive data was last revised 2022. Calcium 9.3 8.5 - 10.3 mg/dL [facility] Bilirubin, total 0.4 0.1 - 1.2 mg/dL [facility] Protein, pl 7.5 6.5 - 8.5 g/dL [facility] Albumin 4.7 3.5 - 5.0 g/dL [facility] Alk phos 64 40 - 130 Units/L [facility] ALT 18 7 - 45 Units/L [facility] AST 23 10 - 45 Units/L [facility] Blood 05/17/2025 10:3 0 AM LOAN EXPEDITOR 05/17/2025 10:30 AM LOAN EXPEDITOR us May Madelin Hinton CORNER BLOCK CUTTER LAB BLOOD ORDER MAXIMO Final Result [facility] Department [place] [address] * US Pelvis W Endovaginal (04/22/2025 2:09 PM CDT) Anatomical Region Laterality Modality Pelvis N/A Ultrasound 04/24/2025 8:53 AM CDT Narrative 04/24/2025 8:55 AM CDT EXAM DESCRIPTION: US PELVIS W ENDOVAGINAL REASON FOR STUDY: Postmenopausal bleeding for 4 days n95.0 TECHNIQUE: Grayscale ultrasound of the pelvic contents was performed with transabdominal and transvaginal transducer. COMPARISON: None. FINDINGS: UTERUS: The uterus is anteverted. The uterus is homogenous in echotexture and measures 8.8 x 4.4 x 3.7 cm. Nabothian cyst noted. ENDOMETRIUM: The endometrium measures 0.4 cm in thickness. RIGHT OVARY: The right ovary not seen for assessment. LEFT OVARY: The left ovary not seen for assessment. PELVIC FLUID: Trace free fluid in the pelvis. OTHER: No other significant findings. IMPRESSION: 1. No evidence of an acute abnormality. 2. Ovaries not seen for assessment. THIS IS AN ELECTRONICALLY VERIFIED FINAL REPORT 04/24/2025 8:55 AM - Electronically signed by Juanjo Mehta M.D. T: Report ID: [id number] Reading Location: [id number] Procedure Note Juanjo Mehta MD - 04/24/2025 EXAM DESCRIPTION: US PELVIS W ENDOVAGINAL REASON FOR STUDY: Postmenopausal bleeding for 4 days n95.0 TECHNIQUE: Grayscale ultrasound of the pelvic contents was performed with transabdominal and transvaginal transducer. COMPARISON: None. FINDINGS: UTERUS: The uterus is anteverted. The uterus is homogenousin echotexture and measures 8.8 x 4.4 x 3.7 cm. Nabothian cyst noted. ENDOMETRIUM: The endometrium measures 0.4 cm in thickness. RIGHT OVARY: The right ovary not seen for assessment. LEFT OVARY: The left ovary not seen for assessment. PELVIC FLUID: Trace free fluid in the pelvis. OTHER: No other significant findings. IMPRESSION: 1. No evidence of an acute abnormality. 2. Ovaries not seen for assessment. THIS IS AN ELECTRONICALLY VERIFIED FINAL REPORT 04/24/2025 8:55 AM - Electronically signed by Juanjo Mehta M.D. T: Report ID: [id number] Reading Location: [id number] Tran Londono MD [facility] [place] PROCEDURES Final Result * eGFR (03/08/2025 11:28 AM CDT) eGFR >90 >=60 mL/min/1. 73 m2 Comment: Interpretive Data Reference Interval Normal >/= 90 mL/min/1.73m2 Mildly decreased* 60 - 89 mL/min/1.73m2 Mildly to moderately decreased 45 - 59 mL/min/1.73m2 Moderately to severely decreased 30 - 44 mL/min/1.73m2 Severely decreased 15 - 29 mL/min/1.73m2 Kidney Failure < 15 mL/min/1.73m2 *Relative to young adult level Estimated glomerular filtration rate is determined by the 2020 CKD-EPI equation recommended by the National Kidney Foundation (A Unifying Approach to GFR Estimation: Recommendations of the NKF-ASK Task Force on Reassessing the Inclusion of Race in Diagnosing Kidney Disease, JASN 2020). The CKD-EPI equation should not be used for patients with unstable renal function and has not been validated in children and those over 70. Current interpretive data was last reviewed 2021. Testing performed by: [address] [address] Blood 03/08/2025 11:2 8 AM CDT 03/08/2025 12:36 PM CDT us J Luis Baeza MD LAB BLOOD ORDERABLES Final Result [facility] [address] [facility] [place] [address] * Differential, auto (03/08/2025 11:28 AM CDT) Neutrophil abs 5.27 1.50 - 6.50 K/cumm Comment:Testing performed by : [address] [address] Imm gran abs 0.03 0.00 - 0.10 K/cumm [facility] Comment:Testing performed by : [address] [address] Lymphocyte abs 1.46 0.80 - 3.30 K/cumm [facility] Comment:Testing performed by : [address] [address] Monocyte abs 0.53 0.20 - 0.80 K/cumm [facility] Comment:Testing performed by : [address] [place] [address] Eosinophil abs 0.17 0.00 - 0.50 K/cumm [facility] Comment:Testing performed by : [address] [address] Basophil abs 0.04 0.00 - 0.10 K/cumm [facility] Comment:Testing performed by : [address] [address] Neutrophil pct 70.2 % [facility] Comment: Interpretive Data Percent cell count reference ranges are not reported, since discordance with absolute values may lead to misinterpretation of CBC data. Current Interpretive Data was last revised on 2017. Testing performed by: [address] [address] Imm gran pct 0.4 % [facility] Comment: Interpretive Data Percent cell count reference ranges are not reported, since discordance with absolute values may lead to misinterpretation of CBC data. Current Interpretive Data was last revised on 2017. Testing performed by: [address] [address] Lymphocyte pct 19.5 % [facility] Comment: Interpretive Data Percent cell count reference ranges are not reported, since discordance with absolute values may lead to misinterpretation of CBC data. Current Interpretive Data was last revised on 2017. Testing performed by: [address] [address] Monocyte pct 7.1 % [facility] Comment: Interpretive Data Percent cell count reference ranges are not reported, since discordance with absolute values may lead to misinterpretation of CBC data. Current Interpretive Data was last revised on 2017. Testing performed by: [address] [address] Eosinophil pct 2.3 % [facility] Comment: Interpretive Data Percent cell count reference ranges are not reported, since discordance with absolute values may lead to misinterpretation of CBC data. Current Interpretive Data was last revised on 2017. Testing performed by: [address] [address] Basophil pct 0.5 % [facility] Comment: Interpretive Data Percent cell count reference ranges are not reported, since discordance with absolute values may lead to misinterpretation of CBC data. Current Interpretive Data was last revised on 2017. Testing performed by: [address] [address] Blood 03/08/2025 11:2 8 AM CDT 03/08/2025 12:38 PM CDT J Luis Baeza MD LAB BLOOD ORDERABLES Final Result [facility] [address] [facility] Department [place] [address] * CBC with auto differential (03/08/2025 11:28 AM CDT) WBC 7.50 3.80 - 9.90 K/cumm Comment:Testing performed by : [address] [address] Hgb 12.9 11.9 - 15.5 g/dL [facility] Comment:Testing performed by : [address] [address] Hct 39.1 35.6 - 45.5 % ELIANA Comment:Testing performed by : [address] [address] Plt 335 150 - 400 K/cumm ELIANA Comment:Testing performed by : [address] [address] MPV 11.7 9.1 - 12.3 fL ELIANA Comment:Testing performed by : [address] [address] RBC 4.35 3.90 - 5.20 M/cumm ELIANA Comment:Testing performed by : [address] [address] MCV 89.9 81.3 - 96.4 fL ELIANA Comment:Testing performed by : [address] [address] MCH 29.7 27.1 - 33.3 pg ELIANA Comment:Testing performed by : [address] [address] MCHC 33.0 32.3 - 35.7 g/dL ELIANA Comment:Testing performed by : [address] [address] RDW CV 12.8 11.1 - 14.9 % ELIANA SOLIZ Comment:Testing performed by : [address] [address] RDW SD 42.1 35.7 - 48.1 fL ELIANA SOLIZ Comment:Testing performed by : [address] [address] NRBC abs 0.00 0.00 - 0.01 K/cumm ELIANA Comment:Testing performed by : [address], [address] Blood 03/08/2025 11:2 8 AM CDT 03/08/2025 12:38 PM CDT J Luis Baeza MD LAB BLOOD ORDERABLES Final Result Performing Organization Address [facility] Co de Phone Number [address] [employer] [place] [address] * CRP (acute phase) (03/08/2025 11:28 AM CDT) CRP 1.5 <=10.0 mg/L Comment:Testing performed by : [address], [address] Blood 03/08/2025 11:2 8 AM CDT 03/08/2025 12:36 PM CDT J Luis Baeza MD LAB BLOOD ORDERABLES Final Result Performing Organization Address City/[facility] Co de Phone Number [address] [employer] [place] [address] * Comprehensive metabolic panel (03/08/2025 11:28 AM CDT) Sodium 142 135 - 145 mmol/L Comment:Testing performed by : [address] [address] Potassium, pl 4.2 3.3 - 4.9 mmol/L [facility] Comment:Testing performed by : [address] [address] Chloride 103 97 - 110 mmol/L [facility] Comment:Testing performed by : [address], [place]., [address] CO2 24 22 - 32 mmol/L [facility] Comment:Testing performed by : [address] [address] Anion gap 15 2 - 15 mmol/L [facility] Comment:Testing performed by : [address] [address] BUN 18 6 - 25 mg/dL [facility] Comment:Testing performed by : [address], [place]., [address] Creatinine 0.60 0.60 - 1.10 mg/dL [facility] Comment:Testing performed by : [address] [address] Glucose 85 70 - 199 mg/dL [facility] Comment: Interpretive Data Fasting glucose >/= 126 mg/dl is diagnostic for diabetes. Fasting is defined as no caloric intake for at least 8 hours. Fasting glucose between 100 mg/dl to 125 mg/dl is diagnostic of prediabetes. In a patient with classic symptoms of hyperglycemia or hyperglycemic crisis, a random glucose >/= 200 mg/dl is diagnostic for diabetes. In the absence of unequivocal hyperglycemia, results should be confirmed by repeat testing. The classification and Diagnosis of Diabetes Diabetes Care 202; 46: S19-S40. Current interpretive data was last revised 2022. Testing performed by: [address] [address] Calcium 9.9 8.5 - 10.3 mg/dL [facility] Comment:Testing performed by : [address] [address] Bilirubin, total 0.3 0.1 - 1.2 mg/dL [facility] Comment:Testing performed by : [address] [address] Protein, pl 6.9 6.5 - 8.5 g/dL [facility] Comment:Testing performed by : [address] [address] Albumin 4.5 3.5 - 5.0 g/dL ELIANA Comment:Testing performed by : [address] [address] Alk phos 84 40 - 130 Units/L ELIANA Comment:Testing performed by : [address] [address] ALT 36 7 - 45 Units/L [place]NA Comment:Testing performed by : [address] [address] AST 30 10 - 45 Units/L ELIANA Comment:Testing performed by : [address] [address] Blood 03/08/2025 11:2 8 AM CDT 03/08/2025 12:36 PM CDT J Luis Baeza MD LAB BLOOD ORDERABLES Final Result ELIANA [address] [facility] [place] [address] * TB test, quantiferon gold (02/24/2025 9:26 AM CDT) [facility] Quantiferon TB Gold Negative Negative [facility] Comment: No interferon-gamma response to M. tuberculosis antigens was detected. Latent infection with M. tuberculosis is unlikely. A single negative result does not exclude infection with M. tuberculosis. In patients at high risk for M.tuberculosis infection, a second test should be considered in accordance with the 2017 ATS/IDSA/CDC Clinical Practice Guidelines for Diagnosis of Tuberculosis in Adults and Children [Lewinsohn DM et. al. Clin. Infect. Dis. 2017;64(2):111-115]. The reference range for the 'TB1 Ag minus Nil Result' and 'TB2 Ag minus Nil Result' is an Interferon-gamma level <0.35 IU/mL. Testing performed by: [address] [address] TB-Nil 0.00 IUnits/mL ELIANA SOLIZ Comment:Testing performed by : [facility], [address] [place] [address]., [address] TB2-Nil 0.00 IUnits/mL ELIANA SOLIZ Comment:Testing performed by : [facility], [address] [place] [address]., [address] Mitogen-Nil 7.33 IUnits/mL ELIANA SOLIZ Comment:Testing performed by : [facility], [address] [place] [address], [place]., [address] NIL 0.01 IUnits/mL ELIANA SOLIZ Comment: Test Performed by: [facility] [address] [place] [address] Flower Cheniller: Marissa Ponce Ph.D.; CLIA# [id number] Testing performed by: [address] [address] Blood 02/24/2025 9:26 AM CDT 02/24/2025 9:48 AM CDT J Luis Baeza MD LAB BLOOD ORDERABLES Final Result ELIANA [address] [employer] [place] [address] [facility] * Vitamin D 25 hydroxy (02/24/2025 9:26 AM CDT) Vitamin D 25-OH 36.0 30.0 - 80.0 ng/mL Blood 02/24/2025 9:26 AM CDT 02/24/2025 12:22 PM CDT J Luis Baeza MD LAB BLOOD ORDERABLES Final Result ELIANA [address] [employer] [place] [address] * (ABNORMAL) Screening Mammogram Bilateral W Jasson (12/24/2024 3:49 PM CDT) Anatomical Region Laterality Modality Breast Bilateral Mammography Impressions 12/24/2024 4:00 PM CDT Left 1) Focal Asymmetry: Left breast focal asymmetry in the lower central region in the middle depth. 2) Asymmetry: Left breast asymmetry in the outer region in the middle depth. Right No evidence of malignancy. OVERALL BI-RADS FINAL ASSESSMENT: 0 - Incomplete: Needs Additional Imaging Evaluation RECOMMENDATIONS: Recommend left breast diagnostic mammogram with possible ultrasound. Narrative 12/24/2024 4:00 PM CDT EXAMINATION: Screening Mammogram Bilateral W Jasson: 12/24/2024 COMPARISON: Relevant prior studies available at the time of interpretation were reviewed. TECHNIQUE: Mammography was performed with 2D and digital breast tomosynthesis (DBT) images. CAD was utilized. BREAST PARENCHYMAL COMPOSITION: There are scattered areas of fibroglandular density. FINDINGS: Left 1) Focal Asymmetry: There is a focal asymmetry seen in the lower central region of the left breast in the middle depth. 2) Asymmetry: There is an asymmetry seen in the outer region of the left breast in the middle depth on the CC view. Right There is no suspicious mass, calcification, or architectural distortion. us Self Screening Mammogram IMG MAMMO PROCEDURES Fi nal Result * COLONOSCOPY (10/25/2022 8:31 AM CDT) Anatomical Region Laterality Modality Other Narrative Procedure Note J Luis Baeza MD - 10/25/2022 8:31 AM CDT ENDOSCOPY LAB Patient Name: Sophia Acosta Procedure Date: 10/25/2022 8:31 AM Date of : 1975 Admit Type: Outpatient Age: 47 Gender: Female Attending MD: J Luis Baeza M.D. Room: [facility] ENDOSCOPY ROOM 02 Note Status: Finalized Procedure: Colonoscopy Indications: Disease activity assessment of Crohn's disease ofthe small bowel, on ustekinumab q 4 weeks Providers: J Luis Baeza M.D. Referring MD: J Luis Baeza M.D. Medicines: Monitored Anesthesia Care Complications: No immediate complications. Estimated Blood Loss: Estimated blood loss was minimal. Procedure: Pre-Anesthesia Assessment: - Immediately prior to administration ofmedications, the patient was re-assessed for adequacy to receive sedatives. The benefits, risks and alternatives of theprocedure and sedation were discussed and informed consentwas obtained. All questions were answered. Please referto the signed informed consent document in the medical record. The scope was passed under direct vision.The [id number] was introduced through the anusand advanced to the terminal ileum. The colonoscopy was performed without difficulty. The patient tolerated the procedure well. The quality of the bowel preparation was evaluated using the BBPS (BostonBowel Preparation Scale) with scores of: Right Colon = 3 (entire mucosa seen well with no residual staining, small fragments of stool or opaque liquid),Transverse Colon = 2 (minor amount of residual staining, small fragments of stool and/or opaque liquid, but mucosa seen well) and Left Colon = 2 (minor amount of residual staining, small fragments of stool and/or opaque liquid, but mucosa seen well). The totalBBPS score equals 7. The quality of the bowelpreparation was good. The bowel preparation used was GoLYTELYvia split dose instruction. The quality of the bowel preparation was good. Findings: The perianal and digital rectal examinations were normal. The terminal ileum appeared normal. No stricture. Biopsies were taken with a cold forceps for histology. The colon (entire examined portion) appeared normal. Biopsies weretaken with a cold forceps for histology. The retroflexed view of the distal rectum and anal verge was normaland showed no anal or rectal abnormalities. Impression: - The examined portion of the ileum was normal. Biopsied. - The entire examined colon is normal. Biopsied. - Crohn's disease in remission. Recommendation: - Await pathology results. - Continue ustekinumab q 4 weeks. - Repeat colonoscopy for surveillance based on pathology results. - Return to my office as previously scheduled. - . Electronically signed by J Luis Baeza MD J Luis Baeza M.D. 10/25/2022 9:15:38 AM Number of Addenda: 0 Note Initiated On: 10/25/2022 8:31 AM J Luis Baeza MD ENDOSCOPY PROCEDURES Final Result * Serum Hepatitis C ab (03/06/2015 11:24 AM CDT) HCV ab Negative NEG HISTORICAL RESULTS Serum 03/06/2015 11:2 4 AM CDT Jacquelyn Eaton MD LAB BLOOD ORDER MAXIMO Final Result HISTORICAL RESULTS from Last 3 Months or Most Recently Relevant to Health Maintenance Insurance [facility] CLAIMS [facility] CLAIMS [facility] CLAIMS Advance Directives For more information, please contact: [phone] * Full Code (Latest Code Status on File) Date Activated Date Inactivated Comments 05/24/2024 7:49 AM 05/24/2024 3:03 PM * Full Code Date Activated Date Inactivated Comments 05/22/2023 12:02 PM 05/22/2023 7:27 PM * Full Code Date Activated Date Inactivated Comments 11/05/2022 2:16 PM 11/10/2022 9:56 PM * Full Code Date Activated Date Inactivated Comments 10/25/2022 7:47 AM 10/25/2022 1:58 PM * Full Code Date Activated Date Inactivated Comments 07/28/2022 7:14 PM 07/31/2022 8:38 PM Care Teams Worship Leader Relationship Specialty Start Date End Date Maxime Pryor Jr., PA [facility] [address] PCP - General Family Medicine 12/23/23 Giuseppe Pratt MD Medical Oncologist/General Farmworker Hematology and Oncology 02/19/19 Tran Londono MD [address] [address] Referring Physician Gynecology 01/06/25
--- OUTSIDE RECORDS SUMMARY | 2025-05-20 03:13 | XMS_ITS | Clinical Summary ---
Author Organization [facility] Address [address] [place] [address] Care Team Providers Care Cook Cold Meat Name Role Phone Maxime Pryor Primary Care Provider [phone] Allergies Active Allergy Reactions Criticality Noted Date Comments Penicillins Unknown 04/24/2012 Medications No known medications Immunizations Immunization Administration Dates Next Due MODERNA COVID-19 (12+) MRNA, LNP-S, PF, 100 MCG/ 0.5 ML DOSE 10/26/2020,09/28/2020 Social History Tobacco Use Types Packs/Day Years Used Date Smoking Tobacco: Never Smokeless Tobacco: Never Alcohol Use Standard Drinks/Week Comments Yes 1.7 (1 standard drink = 0.6 oz p ure alcohol) AUDIT-C Answer Date Recorded Frequency of Alcohol Consumption Never 01/14/2019 Average Number of Drinks Not on file 019 Frequency of Binge Drinking Not on file 01/04 Comments No Sex and Gender Information Value Date Recorded Sex Assigned at Not on file Legal Sex Female 5:57 PM CDT Gender Identity Not on file Sexual Orientation Not on file Last Filed Vital Signs Vital Sign Reading Time Taken Comments Blood Pressure 122/77 07/01/2020 10:30 AM PROFESSOR OF 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 ENGINEERING Pulse 91 07/01/2020 8:29 AM PROFESSOR OF 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 ENGINEERING Temperature 36.5 C (97.7 F) 07/01/2020 8:29 AM PROFESSOR OF 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 ENGINEERING Respiratory Rate 16 07/01/2020 8:29 AM PROFESSOR OF 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 ENGINEERING Oxygen Saturation 100% 07/01/2020 10:33 AM PROFESSOR OF 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 ENGINEERING Inhaled Oxygen Concentration - - Weight 70.3 kg (155 lb) 07/01/2020 8:29 AM PROFESSOR OF 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 ENGINEERING Height 165.1 cm (5' 5) 07/01/2020 8:29 AM PROFESSOR OF 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 ENGINEERING Body Mass Index 25.79 07/01/2020 8:29 AM PROFESSOR OF 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 ENGINEERING Plan of Treatment Health Maintenance Due Date Last Done Comments Cervical Cancer Screening Pa p Smear (Age 30 to 64) Every 3 Years 1975 Colorectal Cancer Screening Colonoscopy (10 Years) 1975 Annual Physical 1976 Hepatitis C 10/17/1991 Hepatitis B Vaccines (1 of 3 - 19+ 3-dose series) 1992 Cervical Cancer Screening Pa p with HPV Testing (Age 30 to 64) Every 5 Years 10/17/2003 Cervical Cancer Screening wi th HPV 10/17/2003 Mammogram Screening 2013 Pneumococcal Vaccine: 50+ Years (1 of 1 - PCV) 10/17/2023 Zoster Vaccines (1 of 2) 10/17/2023 COVID-19 Vaccine (3 - 2024-2 6 season) 2025 10/26/2020, 09/28/2020 Influenza Adult (#1) 2025 03/01/2020, 06/19/2015, 06/13/2008 DTaP, Tdap and Td Vaccines ( 2 - Td or Tdap) 06/11/2028 06/11/2018 Hepatitis A Vaccines Aged Out 06/11/2018 No long er eligible based on patient's age to complete this topic Meningococcal B Vaccine Aged Out No l onger eligible based on patient's age to complete this topic Meningococcal Vaccine Aged Out No bandar zulma eligible based on patient's age to complete this topic RSV Immunizations Under 20 Months Aged Out No longer eligible b ased on patient's age to complete this topic [place] [address] [place] [address] Care Teams Cook Cold Meat Relationship Specialty Start Date End Date Maxime Pryor PA [address] [place] [address] [id number] PCP - General PHYSICIAN ETHOLOGIST 01/14/19
--- OUTSIDE RECORDS SUMMARY | 2025-05-20 03:13 | XMS_ITS | Encounter Summary ---
Author Organization [facility] Facility Care Team Providers Care Pharmacy Technician Trainee Name Role Phone BLAISE Pryor Jr., Maxime Foreman Primary Care Provide r Juliane Hughes MD Unavailable + [phone] Giuseppe Pratt MD Unavailable [phone] Tran Londono MD Primary Care Provider + BLAISE Pryor Jr., Maxime Foreman Primary Care Provide r Tran Londono MD Unavailable [phone] Encounter Details Date Type Department Care Team (Latest Contact Info) Description 08/25/2018 Orders Only [facility]INCON[facility] ProviderJonathan MD [address] [place] [address] Social History Tobacco Use Types Packs/Day Years Used Date Smoking Tobacco: Former Smokeless Tobacco: Never Comments Unknown Sex and Gender Information Value Date Recorded Sex Assigned at Not on file Legal Sex Female 8:25 PM 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 Gender Identity Not on file Sexual Orientation Not on file documented as of this encounter Plan of Treatment Upcoming Encounters Date Type Department Care Team (Late st Contact Info) Description 05/23/2025 8:00 AM JEWELRY 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 Hospital Encounter [facility] [address] [facility] [address] [place] [address] Sophia Rodriguez, DO [address] [place] [address] 05/23/2025 8:00 AM JEWELRY 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 - 05/23/2025 9:30 AM JEWELRY 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 Surgery [facility]ly [facility], [facility] [facility] [address] [place] [address] Sophia Rodriguez, DO [address] [place] [address] [facility] Scheduled Procedures Name Priority Associated Diagnoses Date/Ti me SMALL BOWEL ENDOSCOPY Stricture intestinal Crohn's disease with complication, unspecified gastrointestinal tract location (HCC) 05/23/2025 8:00 AM JEWELRY 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 documented as of this encounter Procedures Procedure Name Priority Date/Time Associated Diagnosis Comments PROCEDURE - RESULT 08/25/2018 12 :00 AM JEWELRY 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 PROCEDURE - RESULT 08/25/2018 12 :00 AM JEWELRY 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 COLONOSCOPY - SCAN 08/25/2018 12 :00 AM JEWELRY 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 documented in this encounter Results * PROCEDURE - RESULT (08/25/2018 12:00 AM JEWELRY 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) Narrative 08/25/2018 12:00 AM JEWELRY 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 Ordered by an unspecified provider. Historical Provider Final Res ult * COLONOSCOPY - SCAN (08/25/2018 12:00 AM JEWELRY 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) Narrative 08/25/2018 12:00 AM JEWELRY 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 Ordered by an unspecified provider. Historical Provider Final Res ult * PROCEDURE - RESULT (08/25/2018 12:00 AM JEWELRY 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) Narrative 08/25/2018 12:00 AM JEWELRY 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 Ordered by an unspecified provider. Historical Provider Final Res ult documented in this encounter Visit Diagnoses Not on filedocumented in this encounter Care Teams Pharmacy Technician Trainee Relationship Specialty Start Date End Date Maxime Pryor Jr., PA PCP - General 10/23/16 11/10/23 Tran Londono MD [address] [place] [address] PCP - General Gynecology 11/11/23 12/22/23 [place] [address] [place] [address] PCP - General Family Medicine 12/23/23 Juliane Hughes MD [address] [place], [place] [id number] Consulting Physician Family Medicine 02/15/19 12/22/23 Giuseppe Pratt MD [address] [place], [place] [id number] Medical Oncologist/Medical Office Clerk Hematology and Oncology 02/19/19 Tran Londono MD [address] [place] [address] Referring Physician Gynecology 01/06/25 documented as of this encounter
--- NOTE | 2025-05-20 04:56 | PC.NURSE ---
Uzair from Dr Christine: Ok to remove Rhogam and hcg quant from order set.
[2025-05-20 05:15] LABS: Hematocrit 41.6 % (37.0-47.0); Hemoglobin 13.8 g/dL (12.0-15.0); Immature Granulocyte Percent A 0.3 % (0-0.5); Lymphocytes Absolute Auto 1.28 K/mm3 (0.9-3.2); Mean Corpuscular HGB Conc 33.2 g/dl (32-36); Mean Corpuscular Hemoglobin 30.1 pg (26-34); Mean Corpuscular Volume 90.8 fl (80-100); Nucleated Red Blood Cells Absolute Auto 0.000 K/mm3 (0.0-0.012); Nucleated Red Blood Cells Perc 0.0 % (0.0-0.2); Platelet Count Result 325 k/mm3 (150-375); Red Blood Count 4.58 M/mm3 (4.2-5.4); White Blood Count 8.8 K/mm3 (4.5-10.0)
[2025-05-20 05:26] LABS: Alanine Aminotransferase 29 U/L (6-35); Albumin Level 4.7 g/dL (3.5-5.1); Alkaline Phosphatase 68 U/L (38-126); Anion Gap 7 mmol/L (4-12); Aspartate Amino Transferase 40 U/L (14-36); Bilirubin,Total 0.5 mg/dL (0.2-1.3); Blood Urea Nitrogen 18 mg/dL (7-17); Calcium 9.3 mg/dL (8.4-10.2); Carbon Dioxide 26 mmol/L (22-30); Chloride 107 mmol/L (98-107); Estimated CRCL calculation 76 ml/min; Estimated Glomerular Filt Rate > 60; Glucose 91 mg/dL (65-110); Potassium 4.4 mmol/L (3.4-5.0); Sodium 140 mmol/L (137-145); Total Protein 7.7 g/dL (6.3-8.2)
[2025-05-20 05:38] LABS: INR 0.9; Partial Thromboplastin Time 28.6 Seconds (22.3-36.8); Prothrombin Time 12.6 Seconds (11.1-14.7)
[2025-05-20 06:28] LABS: BEDSIDEPREGUCG Negative (Negative)
[2025-05-20 06:36] LABS: Add Urine Microscopic? YES; Appearance Urine Clear (Clear); Glucose Urine UA Negative (Negative); Leukocyte Esterase Ur Negative LEU/UL (Negative); Nitrate Urine Negative (Negative); Non Pathogenic Casts 0-2; Specific Grav Ur 1.010 (1.001-1.035)
--- NOTE | 2025-05-20 07:47 | ED_ITS ---
HPI - Female Genitourinary General Chief complaint: Vaginal Bleeding Stated complaint: vaginal bleeding Time Seen by Provider: 05/20/25 06:57 Source: patient Mode of arrival: ambulatory Limitations: no limitations History of Present Illness HPI Narrative: this is a 49-year-old female with history of Crohn's disease, rheumatoid arthritis who presents the ED for vaginal bleeding. Patient states that she started menopause in September of this year. She began to have intermittent vaginal bleeding since then and saw Dr. Londono OBGYN, for this last month when ultrasound was obtained and showed a thickened endometrium. She is currently scheduled for a biopsy. She had a gush of blood from her vagina this morning and was advised to come in if she had any bleeding like this. She denies lightheadedness, dizziness. Does have some abdominal cramping. Related Data Allergies Allergy/AdvReac Type Severity Reaction Status Date / Time Penicillins Allergy Unknown Itching Verified 05/20/25 03:24 Review of Systems 2 Review of Systems: Gen.: Denies fevers or chills Eyes: Denies eye pain or visual change ENT: Denies congestion Respiratory: Denies shortness of breath or cough CV: Denies chest pain or palpitations GI: Denies abdominal pain nausea, emesis or diarrhea denies burning, urgency, frequency or hematuria Musculoskeletal: Denies back pain or muscle pain Neuro: Denies numbness, tingling, weakness or focal weakness Skin: Denies rash Except as documented, all other systems reviewed and negative Exam 2 Narrative: APPEARANCE: No acute distress, nontoxic, resting in bed EYES: EOMI HEENT: Normocephalic, atraumatic, OMM RESPIRATORY: No respiratory distress Clear to auscultation bilaterally with no rhonchi wheezing or rales. CARDIOVASCULAR: Regular rate and rhythm without murmurs rubs or gallops. ABDOMINAL: Soft, nontender, nondistended, no rebound or guarding MUSCULOSKELETAl: Moves all extremities. No clubbing, cyanosis or edema. NEURO: Awake and alert. Following commands, speech normal, no focal deficits SKIN:: Warm, dry. No rashes lesions or abrasions PSYCHIATRIC: Normal affect/mood, Course Vital Signs Vital signs: Vital Signs Temperature 97.6 F 05/20/25 03:20 Pulse Rate 76 05/20/25 03:20 Respiratory Rate 18 05/20/25 03:20 Blood Pressure 134/79 05/20/25 03:20 Pulse Oximetry 98 05/20/25 03:20 Oxygen Delivery Room Air 05/20/25 03:20 Temperature 97.6 F 05/20/25 03:20 Pulse Rate 82 05/20/25 08:27 Respiratory Rate 16 05/20/25 08:27 Blood Pressure 113/77 05/20/25 08:27 Pulse Oximetry 100 05/20/25 08:27 Oxygen Delivery Room Air 05/20/25 03:20 MDM - Female Genitourinary MDM Narrative Medical decision making narrative: 49-year-old female Presenting for vaginal bleeding. On initial evaluation patient was in no acute distress afebrile, hemodynamic stable. Differentials include but are not limited to: Abnormal uterine bleeding, abnormal vaginal bleeding, laceration, menses, , miscarriage, ectopic Notable exam findings: Abdomen soft and nontender. No pallor. I personally reviewed the patient's lab result. Notable lab findings: CBC and CMP without significant abnormalities. UA showed blood. I personally reviewed the patient's images. Notable imaging findings: Transvaginal ultrasound showed thickened endometrium Patient's transvaginal ultrasound is stable from prior outpatient per patient's report to me. She did have some excess bleeding today but she is not requiring a transfusion at this time and her hemoglobin is normal. Patient is already following with [facility], for this and I advised her to go ahead and call their office today to further discuss the timing of the biopsy that is scheduled for early next month. Patient was agreeable to this plan. Given strict return precautions. Medical Records Attestation: I reviewed the patient's medical records. Lab Data Attestation: I reviewed the patient's lab results. 05/20/25 05:08 05/20/25 05:08 Labs: Lab Results 05/20/25 05/20/25 05/20/25 Range/Units 05:08 06:23 06:27 WBC 8.8 (4.5-10.0) K/mm3 RBC 4.58 (4.2-5.4) M/mm3 Hgb 13.8 (12.0-15.0) g/dL Hct 41.6 (37.0-47.0) % MCV 90.8 (80-100) fl MCH 30.1 (26-34) pg MCHC 33.2 (32-36) g/dl RDW 12.3 (11.5-14.5) % Plt Count 325 (150-375) k/mm3 MPV 10.5 H (7.4-10.4) fl Immature Gran % (Auto) 0.3 (0-0.5) % Neut % (Auto) 77.9 H (45.5-73.1) % Lymph % (Auto) 14.6 L (18.3-44.2) % [place] % (Auto) 5.7 (2.6-8.5) % Eos % (Auto) 1.0 (0-4.4) % Baso % (Auto) 0.5 (0.2-1.2) % Lymph # (Auto) 1.28 (0.9-3.2) K/mm3 [place] # (Auto) 0.5 (0.1-0.6) K/mm3 Eos # (Auto) 0.1 (0-0.3) K/mm3 Baso # (Auto) 0.0 (0.0-0.1) K/mm3 Abs Immat Gran (auto) 0.03 (0.00-0.031) K/mm3 Absolute Neuts (auto) 6.9 H (1.3-6.7) K/mm3 Absolute Nucleated RBC 0.000 (0.0-0.012) K/mm3 Nucleated RBC % 0.0 (0.0-0.2) % PT 12.6 (11.1-14.7) Seconds INR 0.9 APTT 28.6 (22.3-36.8) Seconds Sodium 140 (137-145) mmol/L Potassium 4.4 (3.4-5.0) mmol/L Chloride 107 (98-107) mmol/L Carbon Dioxide 26 (22-30) mmol/L Anion Gap 7 (4-12) mmol/L BUN 18 H (7-17) mg/dL Creatinine 0.71 (0.7-1.0) mg/dL Estim Creat Clear Calc 76 ml/min Estimated GFR > 60 (59 - ) Glucose 91 (65-110) mg/dL Calcium 9.3 (8.4-10.2) mg/dL Total Bilirubin 0.5 (0.2-1.3) mg/dL AST 40 H (14-36) U/L ALT 29 (6-35) U/L Alkaline Phosphatase 68 (38-126) U/L Total Protein 7.7 (6.3-8.2) g/dL Albumin 4.7 (3.5-5.1) g/dL Urine Color Yellow (Yellow) Urine Appearance Clear (Clear) Urine pH 5.5 (5.0-9.0) Ur Specific [place] 1.010 (1.001-1.035) Urine Protein Negative (Negative) mg/dL Urine Glucose (UA) Negative (Negative) mg/dL Urine Ketones Negative (Negative) mg/dL Ur Blood (Man) 3+ H (Negative) Urine Nitrate Negative (Negative) Urine Bilirubin Negative (Negative) Urine Urobilinogen 0.2 (<2.0) mg/dL Leukocyte Esterase Rfl Negative (Negative) JASON/UL Urine RBC >100 H (0-2) /hpf Urine WBC 0-5 (0-3) /hpf Ur Squamous Epith Cells None seen (Few) /hpf Urine Bacteria None seen /hpf Urine Casts 0-2 POC Urine HCG, Qual Negative (Negative) Imaging Data Attestation: I personally reviewed and interpreted this imaging study as follows: Radiologist's impression: Impressions Transvaginal US 05/20/25 07:54 IMPRESSION: Thickened endometrial stripe with trace amount of fluid of uncertain significance. If endometrial biopsy is not indicated, follow-up pelvic ultrasound in 6-8 weeks recommended or sooner if clinically appropriate. Discharge Plan Discharge Clinical Impression: Abnormal uterine bleeding Patient Disposition: Home Condition: Stable Instructions: Antibiotic Form, Abnormal (Dysfunctional) Uterine Bleeding (ED) Additional Instructions: Lab work was reassuring. Ultrasound continued showed thickened endometrium. Call Dr. Londono's office today to discuss interventions and potentially moving your biopsy up. Continue to track the number of pads that your using. Return to the ED for any new or worsening symptoms. Patient Language: [place] Follow-up/Referrals: PHYSICIAN NOT ON STAFF,NONSTAFF [Primary Care Provider]
--- OUTSIDE RECORDS SUMMARY | 2025-05-20 08:13 | XMS_ITS | Clinical Summary ---
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 [employer] Pulse 91 07/01/2020 8:29 AM DISTRICT [employer] Temperature 36.5 C (97.7 F) 07/01/2020 8:29 AM DISTRICT [employer] Respiratory Rate 16 07/01/2020 8:29 AM DISTRICT [employer]GER [employer] Oxygen Saturation 100% 07/01/2020 10:33 AM DISTRICT [employer] Inhaled Oxygen Concentration - - Weight 70.3 kg (155 lb) 07/01/2020 8:29 AM DISTRICT [employer] Height 165.1 cm (5' 5) 07/01/2020 8:29 AM DISTRICT [employer] Body Mass Index 25.79 07/01/2020 8:29 AM DISTRICT MANAGER [employer] Plan of Treatment Health Maintenance Due Date [...] patient's age to complete this topic [place] [address] [place] [address] Care Teams General Sales Manager Relationship Specialty Start Date End Date Maxime Pryor PA [address] [place] [address] [id number] PCP - General PHYSICIAN FISH CAKE MAKER 01/14/19
--- OUTSIDE RECORDS SUMMARY | 2025-05-20 08:14 | XMS_ITS | Encounter Summary ---
Author Organization [facility] Care Team Providers Care Art Consultant Name Role Phone BLAISE Pryor Jr., Maxime Foreman Primary Care Provide r Juliane Hughes MD Unavailable [phone] Giuseppe Pratt MD Unavailable [phone] Tran Londono MD Primary Care Provider + BLAISE Pryor Jr., Maxime Foreman Primary Care Provide r Tran Londono MD Unavailable [phone] Encounter Details Date Type Department Care Team (Latest Contact Info) Description 08/25/2018 Orders Only [facility] CLINCON[facility] ProviderJonathan MD [address] [place] [id number] Social History Tobacco Use Types Packs/Day Years Used Date Smoking Tobacco: Former Smokeless Tobacco: Never Comments Unknown Sex and Gender Information Value Date Recorded Sex Assigned at Not on file Legal Sex Female 8:25 PM JUDGE CLERK Gender Identity Not on file Sexual Orientation Not on file documented as of this encounter Plan of Treatment Upcoming Encounters Date Type Department Care Team (Late st Contact Info) Description 05/23/2025 8:00 AM JUDGE CLERK Hospital Encounter [facility] [address] [facility] [address] [place] [address] Sophia Rodriguez, DO [address] [place] [address] 05/23/2025 8:00 AM JUDGE CLERK - 05/23/2025 9:30 AM JUDGE CLERK Surgery [facility] Critical access hospital[facility] [address] [place] [address] Sophia Rodriguez, DO [address] [place] [address] [facility] Scheduled Procedures Name Priority Associated Diagnoses Date/Ti me SMALL BOWEL ENDOSCOPY Stricture intestinal Crohn's disease with complication, unspecified gastrointestinal tract location (HCC) 05/23/2025 8:00 AM JUDGE CLERK documented as of this encounter Procedures Procedure Name Priority Date/Time Associated Diagnosis Comments PROCEDURE - RESULT 08/25/2018 12 :00 AM JUDGE CLERK PROCEDURE - RESULT 08/25/2018 12 :00 AM JUDGE CLERK COLONOSCOPY - SCAN 08/25/2018 12 :00 AM JUDGE CLERK documented in this encounter Results * PROCEDURE - RESULT (08/25/2018 12:00 AM JUDGE CLERK) Narrative 08/25/2018 12:00 AM JUDGE CLERK Ordered by an unspecified provider. Historical Provider Final Res ult * COLONOSCOPY - SCAN (08/25/2018 12:00 AM JUDGE CLERK) Narrative 08/25/2018 12:00 AM JUDGE CLERK Ordered by an unspecified provider. Historical Provider Final Res ult * PROCEDURE - RESULT (08/25/2018 12:00 AM JUDGE CLERK) Narrative 08/25/2018 12:00 AM JUDGE CLERK Ordered by an unspecified provider. Historical Provider Final Res ult documented in this encounter Visit Diagnoses Not on filedocumented in this encounter Care Teams Art Consultant Relationship Specialty Start Date End Date Maxime Pryor Jr., PA PCP - General 10/23/16 11/10/23 Tran Londono MD [address] [place] [address] PCP - General Gynecology 11/11/23 12/22/23 [place] [address] [place] [id number] PCP - General Family Medicine 12/23/23 Juliane Hughes MD [address] [place], [place] [id number] Consulting Physician Family Medicine 02/15/19 12/22/23 Giuseppe Pratt MD [address] [place], [place] [id number] Medical Oncologist/Operations Chief Hematology and Oncology 02/19/19 Tran Londono MD [address] [place] [address] Referring Physician Gynecology 01/06/25 documented as of this encounter
--- OUTSIDE RECORDS SUMMARY | 2025-05-20 08:14 | XMS_ITS | Clinical Summary ---
Author Organization [facility] Address [address] [place] [address] Care Team Providers Care Android Developer Name Role Phone Giuseppe Pratt MD Unavailable BLAISE Pryor Jr., Maxime Foreman Primary Care Provide r Tran Londono MD Unavailable [phone] Allergies Active Allergy Reactions Criticality Noted Date [...] Cervical cancer screening: routine follow up with fuel storage technician Skin cancer screening: follows with derm for psoriasis Bone health: DEXA: normal 2022. Vitamin D normal 2022 CRC screening: only ileal disease, but FH. Q 5 years but will likely get more often for disease activity. 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 Assessment & Plan (06/17/2023 1:26 PM RIBBON BLOCKMAKER): Asymptomatic after stricture dilation. Tolerating more foods. [...] suffice. Assessment & Plan (08/20/2022 9:32 AM RIBBON BLOCKMAKER): Recent admit with SBO with transition point [...] her local GI or with us. Her plant maintenance technician is prescribing Stelara. If she has inflammation will need to have discussion with rheum since Stelara seems to be controlling her other autoimmune diseases. Iron deficiency anemia 10/02/2020 Assessment & Plan (08/20/2022 9:28 AM RIBBON BLOCKMAKER): Has required IV Fe in the past. [...] rheumatology. Assessment & Plan (07/13/2024 4:02 PM RIBBON BLOCKMAKER): Stable. Follows with rheum. Acquired hallux valgus [...] overlap. Assessment & Plan (07/13/2024 12:57 PM RIBBON BLOCKMAKER): All immunosuppressants carry a theoretical risk of [...] hepatotoxicity. Assessment & Plan (06/17/2023 1:20 PM RIBBON BLOCKMAKER): All immunosuppressants carry a theoretical risk of [...] steroids. Assessment & Plan (08/20/2022 9:28 AM RIBBON BLOCKMAKER): Risk of infection with stelara. Monitor cbc, [...] Department Care Team Description 05/17/2025 10:00 AM RIBBON BLOCKMAKER Lab [address] [address] Iron deficiency anemia due to chronic blood loss; Vitamin B12 deficiency 05/17/2025 9:45 AM RIBBON BLOCKMAKER Office Visit [facility] Medicine Obstetrics and Gynecology [address] [facility] 1st Floor [address] [place] [address] Abbey Ballard NP Encounter for well woman exam with routine gynecological exam (Primary Dx); Encounter for screening mammogram for malignant neoplasm of breast; Genitourinary syndrome of menopause 05/16/2025 Telephone [facility] Specialty Services [address] [place] [address] Tete Matthews, RN GI Preprocedure 04/22/2025 1:46 PM CDT - 04/22/2025 11:59 PM CDT Hospital Encounter [facility] [address] [place] [address] Postmenopausal bleeding Discharge Disposition: Discharge to home or self care 04/21/2025 Telephone [facility] Medical Group Neurology [address] [facility] [address] [place] [phone] Katie Quinones NP Prior Auth (Ubrelvy 100MG) 04/05/2025 Telephone [facility] Gastroenterology [address] [facility] Medical Office Building 4, [address] [place] [address] Millie Feliz, LLOYD Follow-up 03/22/2025 11:00 AM CDT Office Visit [facility] Medicine Rheumatology [address] [facility] 2nd Floor [address] [place] [address] Dina Argueta MD Seronegative inflammatory arthritis (Primary Dx) 03/08/2025 11:20 AM CDT Lab [facility] Medical Office Building [address] [place] [address] Crohn's disease with complication, unspecified gastrointestinal tract location (HCC); High risk medications (not anticoagulants) long-term use 03/08/2025 Telephone [facility] Medicine Gastroenterology [facility] 12th [place] [address] [place] [address] Nerissa Harrington 03/08/2025 Telephone [facility] Gastroenterology [address] [facility] Medical Office [address], [address] [place] [address] Sophia Rodriguez, DO GI Preprocedure 03/08/2025 Telephone [facility] Gastroenterology [address] [facility] [address], [address] [place] [phone] Machelle Risa ChachoDena AUTO SERVICE REPRESENTATIVE 03/08/2025 Telephone [facility] Gastroenterology [address] [place] [address] Medical Office Building 4, [address] [place] [address] Nga Almonte RMA 02/24/2025 10:00 AM CDT Clinical Support [facility] Medical Group Primary Care [address] [facility] [address] [place] [address] Need for vaccination (Primary Dx) 02/24/2025 9:20 AM CDT Lab [facility] Office Building [address] [place] [address] Crohn's disease with complication, unspecified gastrointestinal [...] thrombosis ( DVT) of right upper extremity ([facility]) 01/18/2019 Anxiety 01/18/2019 BRANDY (juvenile idiopathic art hritis) ([facility]) 03/17/2018 Rheumatoid arthritis(714.0) 11/03/2010 Psoriasis 08/22/2014 Anemia Arthritis Depression Crohn disease ([facility]) 12/2019 Family History Medical History [...] on file Legal Sex Female 8:25 PM RIBBON BLOCKMAKER Gender Identity Not on file Sexual Orientation Not on file Obstetrics History Para Term AB IAB SAB Ectopic Multiple Livin g Live Births 4 4 4 Date Outcome GA Total Labor Labor/2nd/3rd Weight Sex Type Anes PTL Lucrecia A1 A5 Name Clin Term Term Term Term Last Filed Vital Signs Vital Sign Reading Time Taken Comments Blood Pressure 142/85 05/17/2025 9:50 AM RIBBON BLOCKMAKER Pulse 81 05/17/2025 9:50 AM RIBBON BLOCKMAKER Temperature 36.9 C (98.5 F) 03/22/2025 10:39 AM CDT Respiratory Rate 13 05/24/2024 10:16 AM RIBBON BLOCKMAKER Oxygen Saturation 100% 03/22/2025 10:39 AM CDT Inhaled Oxygen Concentration - - Weight 67.7 kg (149 lb 3.2 oz) 05/17/2025 9:50 A M RIBBON BLOCKMAKER Height 167.6 cm (5' 6) 05/17/2025 9:50 AM RIBBON BLOCKMAKER Body Mass Index 24.08 05/17/2025 9:50 AM RIBBON BLOCKMAKER Plan of Treatment Upcoming Encounters Date Type Department Care Team (Late st Contact Info) Description 05/23/2025 8:00 AM RIBBON BLOCKMAKER Hospital Encounter [facility] Digestive Disease [place] [id number] [address] [address] Sophia Rodriguez DO [address] [address] 05/23/2025 8:00 AM RIBBON BLOCKMAKER - 05/23/2025 9:30 AM RIBBON BLOCKMAKER Surgery [facility] Digestive Disease [place] [phone] [address] [address] Sophia Rodriguez DO [address] [address] Retro SBE Scheduled Procedures Name Priority Associated Diagnoses Date/Ti me SMALL BOWEL ENDOSCOPY Stricture intestinal Crohn's disease with complication, unspecified gastrointestinal tract location (HCC) 05/23/2025 8:00 AM RIBBON BLOCKMAKER Health Maintenance Due Date Last Done Comments [...] Diagnosis Comments EGFR Routine 05/17/2025 10:30 AM RIBBON BLOCKMAKER Iron deficiency anemia due to chronic blood loss Vitamin B12 deficiency DIFFERENTIAL AUTO Routine 05/17/2025 10:30 AM RIBBON BLOCKMAKER Iron deficiency anemia due to chronic blood loss Vitamin B12 deficiency COMPREHENSIVE METABOLIC PANEL Routine 05/17/2025 10:30 AM RIBBON BLOCKMAKER Iron deficiency anemia due to chronic blood loss Vitamin B12 deficiency CBC WITH AUTO DIFFERENTIAL Routine 05/17/2025 10:30 AM RIBBON BLOCKMAKER Iron deficiency anemia due to chronic blood loss Vitamin B12 deficiency IRON PROFILE W/ IBC Routine 05/17/2025 10:30 AM RIBBON BLOCKMAKER Iron deficiency anemia due to chronic blood loss FERRITIN Routine 05/17/2025 10:30 AM RIBBON BLOCKMAKER Iron deficiency anemia due to chronic blood loss Vitamin B12 deficiency VITAMIN B12 Routine 05/17/2025 10:30 AM RIBBON BLOCKMAKER Vitamin B12 deficiency US PELVIS W ENDOVAGINAL [...] Maintenance Results * eGFR (05/17/2025 10:30 AM RIBBON BLOCKMAKER) eGFR >90 >=60 mL/min/1. 73 m2 Comment: [...] reviewed 2021. Blood 05/17/2025 10:3 0 AM RIBBON BLOCKMAKER 05/17/2025 10:30 AM RIBBON BLOCKMAKER us May Madelin Hinton CLOTHING DESIGNER LAB BLOOD ORDER MAXIMO Final Result [facility] One [facility] [place] [address] * (ABNORMAL) Differential, auto (05/17/2025 10:30 AM RIBBON BLOCKMAKER) Pathologist [facility] Neutrophil abs 7.31(H) 1.50 - 6.50 K/cumm Comment:Testing performed by : [facility], [address] [place] [address] Imm gran abs 0.03 0.00 - 0.10 K/cumm [facility] Lymphocyte abs 1.36 0.80 - 3.30 K/cumm [facility] Monocyte abs 0.56 0.20 - 0.80 K/cumm [facility] Eosinophil abs 0.08 0.00 - 0.50 K/cumm [facility] Basophil abs 0.05 0.00 - 0.10 K/cumm [facility] Neutrophil pct 77.8 % [facility] Comment: Interpretive Data Percent cell count reference ranges are not reported, since discordance with absolute values may lead to misinterpretation of CBC data. Current Interpretive Data was last revised on 2017. Imm gran pct 0.3 % [facility] Comment: Interpretive Data Percent cell count reference ranges are not reported, since discordance with absolute values may lead to misinterpretation of CBC data. Current Interpretive Data was last revised on 2017. Lymphocyte pct 14.5 % [facility] Comment: Interpretive Data Percent cell count reference ranges are not reported, since discordance with absolute values may lead to misinterpretation of CBC data. Current Interpretive Data was last revised on 2017. Monocyte pct 6.0 % [facility] Comment: Interpretive Data Percent cell count reference ranges are not reported, since discordance with absolute values may lead to misinterpretation of CBC data. Current Interpretive Data was last revised on 2017. Eosinophil pct 0.9 % [facility] Comment: Interpretive Data Percent cell count reference ranges are not reported, since discordance with absolute values may lead to misinterpretation of CBC data. Current Interpretive Data was last revised on 2017. Basophil pct 0.5 % [facility] Comment: Interpretive Data Percent cell count reference ranges are not reported, since discordance with absolute values may lead to misinterpretation of CBC data. Current Interpretive Data was last revised on 2017. Blood 05/17/2025 10:3 0 AM RIBBON BLOCKMAKER 05/17/2025 10:30 AM RIBBON BLOCKMAKER us May Madelin Carlito Fille CLOTHING DESIGNER LAB BLOOD ORDER MAXIMO Final Result [facility] One [facility] Department [place] [address] * Iron profile w/ IBC (05/17/2025 10:30 AM RIBBON BLOCKMAKER) Iron 99 35 - 145 mcg/dL TIBC 331 250 - 400 mcg/dL [facility] Transferrin saturation 30 20 - 50 % [facility] Blood 05/17/2025 10:3 0 AM RIBBON BLOCKMAKER 05/17/2025 11:35 AM RIBBON BLOCKMAKER us May Madelin Carlito [place] CLOTHING DESIGNER LAB BLOOD ORDER MAXIMO Final Result [facility] One [facility] [place] [address] * (ABNORMAL) CBC with auto differential (05/17/2025 10:30 AM RIBBON BLOCKMAKER) [facility] Signature WBC 9.39 3.80 - 9.90 K/cumm Comment:Testing performed by : [address] [address] Hgb 13.4 11.9 - 15.5 g/dL [facility] Comment:Testing performed by : [address] [address] Hct 39.6 35.6 - 45.5 % [facility] Comment:Testing performed by : [address] [address] Plt 323 150 - 400 K/cumm [facility] Comment:Testing performed by : [address] [address] MPV 10.8 9.1 - 12.3 fL [facility] RBC 4.47 3.90 - 5.20 M/cumm [facility] MCV 88.6 81.3 - 96.4 fL [facility] MCH 30.0 27.1 - 33.3 pg [facility] MCHC 33.8 32.3 - 35.7 g/dL [facility] RDW CV 12.3 11.1 - 14.9 % [facility] RDW SD 39.7 35.7 - 48.1 fL [facility] NRBC abs 0.00 0.00 - 0.01 K/cumm [facility] ANC Prelim 7.31(H) 1.50 - 6.50 K/cumm [facility] Comment: Interpretive Data The rapid ANC is a preliminary automated count and may vary from the final ANC (Neut Abs) reported in the WBC differential that follows. Current interpretive data was last revised 2024. Blood 05/17/2025 10:3 0 AM RIBBON BLOCKMAKER 05/17/2025 10:30 AM RIBBON BLOCKMAKER us May Madelin Carlito Fille CLOTHING DESIGNER LAB BLOOD ORDER MAXIMO Final Result [facility] [place] [address] * Ferritin (05/17/2025 10:30 AM RIBBON BLOCKMAKER) Pathologist [facility] Ferritin 41 13 - 150 ng/mL Blood 05/17/2025 10:3 0 AM RIBBON BLOCKMAKER 05/17/2025 11:35 AM RIBBON BLOCKMAKER us May Madelin Carlito Fille CLOTHING DESIGNER LAB BLOOD ORDER MAXIMO Final Result Performing Organization Address City/[facility]/ZIP Co de Phone Number [facility] Department [place] [address] * Vitamin B12 (05/17/2025 10:30 AM RIBBON BLOCKMAKER) Pathologist [facility] Vitamin B12 340 230 - 1,250 pg/mL Blood 05/17/2025 10:3 0 AM RIBBON BLOCKMAKER 05/17/2025 11:35 AM RIBBON BLOCKMAKER us May Madelin Carlito Fille CLOTHING DESIGNER LAB BLOOD ORDER MAXIMO Final Result Performing Organization Address [facility]/ZIP Co de Phone Number [facility] Department [place] [address] * Comprehensive metabolic panel (05/17/2025 10:30 AM RIBBON BLOCKMAKER) [facility] Sodium 140 135 - 145 mmol/L Comment:Testing performed by : [facility], [address] [place] [address] Potassium, pl 4.1 3.3 - 4.9 mmol/L [facility] Chloride 105 97 - 110 mmol/L [facility] CO2 27 22 - 32 mmol/L [facility] Anion gap 8 2 - 15 mmol/L [facility] BUN 19 6 - 25 mg/dL [facility] Creatinine 0.67 0.60 - 1.10 mg/dL [facility] Glucose 88 70 - 199 mg/dL [facility] Comment: Interpretive Data Fasting glucose >/= 126 [...] 2022. Calcium 9.3 8.5 - 10.3 mg/dL [facility] Bilirubin, total 0.4 0.1 - 1.2 mg/dL [facility] Protein, pl 7.5 6.5 - 8.5 g/dL [facility] Albumin 4.7 3.5 - 5.0 g/dL [facility] Alk phos 64 40 - 130 Units/L [facility] ALT 18 7 - 45 Units/L [facility] AST 23 10 - 45 Units/L [facility] Blood 05/17/2025 10:3 0 AM RIBBON BLOCKMAKER 05/17/2025 10:30 AM RIBBON BLOCKMAKER us May Madelin Hinton CLOTHING DESIGNER LAB BLOOD ORDER MAXIMO Final Result [facility] Department [place] [address] * US Pelvis W Endovaginal (04/22/2025 2:09 [...] by Juanjo Mehta M.D. T: Report ID: [id number] Reading Location: [id number] Procedure Note Juanjo Mehta MD - 04/24/2025 [...] by Juanjo Mehta M.D. T: Report ID: [id number] Reading Location: [id number] Tran Londono MD [facility] US PROCEDURES Final Result * eGFR (03/08/2025 [...] was last reviewed 2021. Testing performed by: [address] [address] Blood 03/08/2025 11:2 8 AM CDT 03/08/2025 12:36 PM CDT us J Luis Baeza MD LAB BLOOD ORDERABLES Final Result [facility] [address] [facility] Department [place] [address] * Differential, auto (03/08/2025 11:28 AM CDT) Neutrophil abs 5.27 1.50 - 6.50 K/cumm Comment:Testing performed by : [address] [address] Imm gran abs 0.03 0.00 - 0.10 K/cumm [facility] Comment:Testing performed by : [address] [address] Lymphocyte abs 1.46 0.80 - 3.30 K/cumm [facility] Comment:Testing performed by : [address] [address] Monocyte abs 0.53 0.20 - 0.80 K/cumm [facility] Comment:Testing performed by : [address] [place]., [address] Eosinophil abs 0.17 0.00 - 0.50 K/cumm [facility] Comment:Testing performed by : [address] [address] Basophil abs 0.04 0.00 - 0.10 K/cumm [facility] Comment:Testing performed by : [address] [address] Neutrophil pct 70.2 % [facility] Comment: Interpretive Data Percent cell count reference ranges are not reported, since discordance with absolute values may lead to misinterpretation of CBC data. Current Interpretive Data was last revised on 2017. Testing performed by: [address] [address] Imm gran pct 0.4 % [facility] Comment: Interpretive Data Percent cell count reference ranges are not reported, since discordance with absolute values may lead to misinterpretation of CBC data. Current Interpretive Data was last revised on 2017. Testing performed by: [address] [address] Lymphocyte pct 19.5 % [facility] Comment: Interpretive Data Percent cell count reference ranges are not reported, since discordance with absolute values may lead to misinterpretation of CBC data. Current Interpretive Data was last revised on 2017. Testing performed by: [address] [address] Monocyte pct 7.1 % [facility] Comment: Interpretive Data Percent cell count reference ranges are not reported, since discordance with absolute values may lead to misinterpretation of CBC data. Current Interpretive Data was last revised on 2017. Testing performed by: [address] [address] Eosinophil pct 2.3 % [facility] Comment: Interpretive Data Percent cell count reference ranges are not reported, since discordance with absolute values may lead to misinterpretation of CBC data. Current Interpretive Data was last revised on 2017. Testing performed by: [address] [address] Basophil pct 0.5 % [facility] Comment: Interpretive Data Percent cell count reference ranges are not reported, since discordance with absolute values may lead to misinterpretation of CBC data. Current Interpretive Data was last revised on 2017. Testing performed by: [address] [address] Blood 03/08/2025 11:2 8 AM CDT 03/08/2025 12:38 PM CDT J Luis Baeza MD LAB BLOOD ORDERABLES Final Result [facility] [address] [facility] Department [place] [address] * CBC with auto differential (03/08/2025 11:28 AM CDT) WBC 7.50 3.80 - 9.90 K/cumm Comment:Testing performed by : [address] [address] Hgb 12.9 11.9 - 15.5 g/dL [facility] Comment:Testing performed by : [address] [address] Hct 39.1 35.6 - 45.5 % [facility] Comment:Testing performed by : [address] [address] Plt 335 150 - 400 K/cumm [facility] Comment:Testing performed by : [address] [address] MPV 11.7 9.1 - 12.3 fL [facility] Comment:Testing performed by : [address] [address] RBC 4.35 3.90 - 5.20 M/cumm [facility] Comment:Testing performed by : [address] [address] MCV 89.9 81.3 - 96.4 fL [facility] Comment:Testing performed by : [address] [address] MCH 29.7 27.1 - 33.3 pg [facility] Comment:Testing performed by : [address] [address] MCHC 33.0 32.3 - 35.7 g/dL [facility] Comment:Testing performed by : [address] [address] RDW CV 12.8 11.1 - 14.9 % [facility] Comment:Testing performed by : [address] [address] RDW SD 42.1 35.7 - 48.1 fL [facility] Comment:Testing performed by : [address] [address] NRBC abs 0.00 0.00 - 0.01 K/cumm [facility] Comment:Testing performed by : [address], [address] Blood 03/08/2025 11:2 8 AM CDT 03/08/2025 12:38 PM CDT J Luis Baeza MD LAB BLOOD ORDERABLES Final Result Performing Organization Address [facility] Co de Phone Number [address] [address] * CRP (acute phase) (03/08/2025 11:28 AM CDT) CRP 1.5 <=10.0 mg/L Comment:Testing performed by : [address], [address] Blood 03/08/2025 11:2 8 AM CDT 03/08/2025 12:36 PM CDT J Luis Baeza MD LAB BLOOD ORDERABLES Final Result Performing Organization Address City[facility] Co de Phone Number [address] [address] * Comprehensive metabolic panel (03/08/2025 11:28 AM CDT) Sodium 142 135 - 145 mmol/L Comment:Testing performed by : [address] [address] Potassium, pl 4.2 3.3 - 4.9 mmol/L [facility] Comment:Testing performed by : [address] [address] Chloride 103 97 - 110 mmol/L [facility] Comment:Testing performed by : [address], [place]., [address] CO2 24 22 - 32 mmol/L [facility] Comment:Testing performed by : [address] [address] Anion gap 15 2 - 15 mmol/L [facility] Comment:Testing performed by : [address] [address] BUN 18 6 - 25 mg/dL [facility] Comment:Testing performed by : [address], [place]., [address] Creatinine 0.60 0.60 - 1.10 mg/dL [facility] Comment:Testing performed by : [address] [address] Glucose 85 70 - 199 mg/dL [facility] Comment: Interpretive Data Fasting glucose >/= [...] was last revised 2022. Testing performed by: [address] [address] Calcium 9.9 8.5 - 10.3 mg/dL [facility] Comment:Testing performed by : [address] [address] Bilirubin, total 0.3 0.1 - 1.2 mg/dL [facility] Comment:Testing performed by : [address] [address] Protein, pl 6.9 6.5 - 8.5 g/dL [facility] Comment:Testing performed by : [address] [address] Albumin 4.5 3.5 - 5.0 g/dL [facility] Comment:Testing performed by : [address] [address] Alk phos 84 40 - 130 Units/L [facility] Comment:Testing performed by : [address] [address] ALT 36 7 - 45 Units/L [facility] Comment:Testing performed by : [address] [address] AST 30 10 - 45 Units/L [facility] Comment:Testing performed by : [address] [address] Blood 03/08/2025 11:2 8 AM CDT 03/08/2025 12:36 PM CDT J Luis Baeza MD LAB BLOOD ORDERABLES Final Result [facility] [address] [facility] Department [place] [address] * TB test, quantiferon gold (02/24/2025 9:26 AM CDT) [facility] Quantiferon TB Gold Negative Negative [facility] Comment: No interferon-gamma response to [...] Interferon-gamma level <0.35 IU/mL. Testing performed by: [address] [address] TB-Nil 0.00 IUnits/mL [facility] Comment:Testing performed by : [facility], [address] [place] [address]., [address] TB2-Nil 0.00 IUnits/mL [facility] Comment:Testing performed by : [facility], [address] [place] [address]., [address] Mitogen-Nil 7.33 IUnits/mL [facility] Comment:Testing performed by : [facility], [address] [place] [address], [place]., [address] NIL 0.01 IUnits/mL [facility] Comment: Test Performed by: [facility] [address] [place] [address] Tafe Lecturer: Marissa Ponce Ph.D.; CLIA# [id number] Testing performed by: [address] [address] Blood 02/24/2025 9:26 AM CDT 02/24/2025 9:48 AM CDT J Luis Baeza MD LAB BLOOD ORDERABLES Final Result [facility] [address] [place] [address] [facility] * Vitamin D 25 hydroxy (02/24/2025 9:26 AM CDT) Vitamin D 25-OH 36.0 30.0 - 80.0 ng/mL Blood 02/24/2025 9:26 AM CDT 02/24/2025 12:22 PM CDT J Luis Baeza MD LAB BLOOD ORDERABLES Final Result [facility] [address] [place] [address] * (ABNORMAL) Screening Mammogram Bilateral W Jasson [...] Attending MD: J Luis Baeza M.D. Room: [facility] ENDOSCOPY ROOM 02 Note Status: Finalized Procedure: [...] The scope was passed under direct vision.The [id number] was introduced through the anusand advanced to [...] Most Recently Relevant to Health Maintenance Insurance [facility] [employer] [employer] [employer] Advance Directives For more information, please contact: [phone] * Full Code (Latest Code Status on [...] 7:14 PM 07/31/2022 8:38 PM Care Teams Android Developer Relationship Specialty Start Date End Date Maxime Pryor Jr., PA [facility] [address] PCP - General Family Medicine 12/23/23 Giuseppe Pratt MD Medical Oncologist/Anthropology Lecturer Hematology and Oncology 02/19/19 Tran Londono MD [address] [address] Referring Physician Gynecology 01/06/25
--- OUTSIDE RECORDS SUMMARY | 2025-05-20 08:14 | XMS_ITS | Encounter Summary ---
Author Organization [facility] Address [address] [place] [address] Care Team Providers Care Sock Ironer Name Role Phone Quintin Stevenson MD Primary Care Provider [phone] Encounter Details Date Type Department Care Team (Late st Contact Info) Description 11/28/2021 Lab Requisition [facility] [address] [place] [address] Max Junior MD [address] [place] [address] Social History Tobacco Use Types Packs/Day Years Used Date Smoking Tobacco: Never Assessed Comments Unknown Sex and Gender Information Value Date Recorded Sex Assigned at Not on file Legal Sex Female 6:27 AM BOILER OUT Gender Identity Not on file Sexual Orientation Not on file documented as of this encounter Plan of Treatment Not on file documented as of this encounter Procedures Procedure Name Priority Date/Time Associated Diagnosis Comments DERMATOPATHOLOGY Routine 11/27/2021 12:0 0 AM CDT documented in this encounter Results * DERMATOPATHOLOGY (11/27/2021 12:00 AM CDT) Case Report Dermatopathology Report Case: [id number] Authorizing Provider: Max Junior MD Collected: 11/27/2021 12:00 AM Ordering Location: [facility] Received: 11/28/2021 05:03 PM Pathologist: Henny Singleton MD Specimen: Skin, nasal tip 9:45 AM CDT DERMATOPATHOLOGY LABORATORY Final Diagnosis Specimen A. 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 Path # [id number]. 9:45 AM CDT DERMATOPATHOLOGY LABORATORY Gross Description Specimen A: Received is one formalin filled container labeled with the patient's name and designated nasal tip. The specimen consists of a shave biopsy measuring [id number]. Jar 0. 9:45 AM CDT DERMATOPATHOLOGY LABORATORY [...] characteristic determined by the Dermatopathology Laboratory at [facility], directed by Dr. Rhina Hurley. These tests need not be, and therefore are not, approved by the [place] Food and Drug Administration. The tests are used for clinical purposes. Billing Codes Specimen Charges Stain Charges 19979 1 2 9:45 AM CDT DERMATOPATHOLOGY LABORATORY Embedded Images 9:45 AM CDT DERMATOPATHOLOGY LABORATORY Pathology/Cytolog y TISSUE SPECIMEN FROM SKIN / Unknown 11/27/2021 11/28/2021 5:03 PM CDT us Max Junior MD LAB - PATHOLOGY/CYTOLOGY ORDER MAXIMO Final Result DERMATOPATHOLOGY LABORATORY [facility] - Department of Dermatology [address], [address] [phone] documented in this encounter Visit Diagnoses Not on filedocumented in this encounter Care Teams Sock Ironer Relationship Specialty Start Date End Date Quintin Stevenson [place] [address] [address] [place] [address] PCP - General 11/28/21 documented as of this encounter
--- OUTSIDE RECORDS SUMMARY | 2025-05-20 08:14 | XMS_ITS | Clinical Summary ---
Author Organization [facility] Address [address] [place] [address] Care Team Providers Care Broadcast Systems Engineer Name Role Phone Quintin Stevenson MD Primary Care Provider [phone] Source Comments [facility],non-owned Affiliates and Associated Physician Practices is amultiple site organization consisting of ambulatory clinics and hospital sitesin [place] and [place]. This disclosure is being madepursuant to the Care Everywhere program and may not contain all information available regarding this patient. Last updated 18.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
== END 2025-05-20 08:28 | disposition home or self-care (01) ==
PROVIDERS: Student in an Organized Health Care Education/Training Program; Emergency Provider Student in an Organized Health Care Education/Training Program
DX: N93.9 Abnormal uterine and vaginal bleeding, unspecified (principal); M06.9 Rheumatoid arthritis, unspecified; K50.90 Crohn's disease, unspecified, without complications
CPT/HCPCS: 36415; 76830; 80053; 81001; 81025; 85025; 85610; 85730; 99284

== ENCOUNTER 2025-05-30 00:30 | Day surgery (SDC) | payer OTHER, SELFPAY ==
--- NOTE | 2025-05-23 12:11 | PC.NURSE ---
[facility] has started construction of its new state of the art ER which will open Spring 2026. With this, we anticipate parking may be a challenge for some our surgical patients and families. Parking spaces are limited but are available for all Surgical, obstetrics, and ER patients sharing this lot. If you arrive and find you are having a hard time finding a parking space, please note that we understand the challenges, please drive around the hospital and park near Hospital Entrance 1. When you enter this entrance, you can ask a volunteer to direct or take you back to the surgical waiting area to check in. We appreciate everyone?s understanding of these expected challenges while we build for your future. Report to the Outpatient Waiting Room, entrance under the green pavilion located off [address], at time __8:45 AM on date __05/30/25 . Planned Procedure Time: __10:45 AM .? Time changes happen often and if your time is changed the preop area will call you the afternoon before. - You and your visitor will be asked to self-screen and do not enter if you have any COVID symptoms. Please call surgeon if you need to reschedule. - A mask is optional within the hospital at this time. Patients may have clear liquids (water, carbonated beverages, clear teas, apple juice) until 3 hours prior to surgery( 7:45 AM ) with a maximum of 20 ounces. - No food from midnight until time of surgery and no smoking, or chewing tobacco (or any form of nicotine). No chewing gum, candy or mints. Take only the following medications with a SIP of water on the morning of surgery: NONE DO NOT STOP ANY OF YOUR OTHER PRESCRIPTION MEDICATIONS PRIOR TO SURGERY EXCEPT THE FOLLOWING Hold all vitamins and supplements for 3 days per anesthesiologist. Medications to discontinue per physician NONE Please no make-up, nail armenian, hairspray, perfume, deodorant, or body powder the day of surgery.? No jewelry (including any body piercings) or valuables the day of surgery, leave them at home.? Please take a shower or bath the night before, or the morning of, surgery with an antibacterial soap.? Wear comfortable, loose fitting clothing.? Children are encouraged to wear pajamas. - Jewelry must be removed prior to entering the operating room.? Rings and piercings that are not removed may be cut off. - The hospital will not accept responsibility for valuables.? - Please leave all valuables, including medications, at home the day of surgery. If you are going home after surgery, a licensed transit mixer driver must drive you home.? - NO public transportation without another adult if you receive anesthesia. - We recommend that an adult stay with you for 24 hours following discharge. - We also recommend that you do not drive, make important decision, drink alcoholic beverages, or take any drugs that were not prescribed by your health care provider for at least 24 hours after your discharge time. For Pediatric surgeries, we recommend two adults accompany the child home. Follow any additional instructions given to you from your surgeon. Telephone instructions given to __PATIENT and asked if any additional questions and then verbalized understanding. Patient advised to call surgeon office or pre surgery nurse liaison [phone] if any additional questions.
[2025-05-23 12:21] VITALS: BMI 24.0
--- OUTSIDE RECORDS SUMMARY | 2025-05-30 00:32 | XMS_ITS | Encounter Summary ---
Author Organization [facility] Facility Care Team Providers Care Website Designer Name Role Phone BLAISE Pryor Jr., Maxime Foreman Primary Care Provide r Juliane Hughes MD Unavailable [phone] Giuseppe Pratt MD Unavailable [phone] Tran Londono MD Primary Care Provider + BLAISE Pryor Jr., Maxime Foreman Primary Care Provide r Tran Londono MD Unavailable [phone] Encounter Details Date Type Department Care Team (Latest Contact Info) Description 08/25/2018 Orders Only [facility] ProviderJonathan MD [address] [place] [id number] Social History Tobacco Use Types Packs/Day Years Used Date Smoking Tobacco: Former Smokeless Tobacco: Never Comments Unknown Sex and Gender Information Value Date Recorded Sex Assigned at Not on file Legal Sex Female 8:25 PM ALMOND BLANCHER Gender Identity Not on file Sexual Orientation Not on file documented as of this encounter Plan of Treatment Not on file documented as of this encounter Procedures Procedure Name Priority Date/Time Associated Diagnosis Comments PROCEDURE - RESULT 08/25/2018 12 :00 AM ALMOND BLANCHER PROCEDURE - RESULT 08/25/2018 12 :00 AM ALMOND BLANCHER COLONOSCOPY - SCAN 08/25/2018 12 :00 AM ALMOND BLANCHER documented in this encounter Results * PROCEDURE - RESULT (08/25/2018 12:00 AM ALMOND BLANCHER) Narrative 08/25/2018 12:00 AM ALMOND BLANCHER Ordered by an unspecified provider. Historical Provider Final Res ult * COLONOSCOPY - SCAN (08/25/2018 12:00 AM ALMOND BLANCHER) Narrative 08/25/2018 12:00 AM ALMOND BLANCHER Ordered by an unspecified provider. Historical Provider Final Res ult * PROCEDURE - RESULT (08/25/2018 12:00 AM ALMOND BLANCHER) Narrative 08/25/2018 12:00 AM ALMOND BLANCHER Ordered by an unspecified provider. Historical Provider Final Res ult documented in this encounter Visit Diagnoses Not on filedocumented in this encounter Care Teams Website Designer Relationship Specialty Start Date End Date Maxime Pryor Jr., PA PCP - General 10/23/16 11/10/23 Tran Londono MD [address] [address] PCP - General Gynecology 11/11/23 12/22/23 Maxime Pryor Jr., PA [address] [place] [address] PCP - General Family Medicine 12/23/23 Juliane Hughes MD [address] [place] [address] Consulting Physician Family Medicine 02/15/19 12/22/23 Giuseppe Pratt MD [address] [place] [address] Medical Oncologist/Body Artist Hematology and Oncology 02/19/19 Tran Londono MD [address] [id number] Referring Physician Gynecology 01/06/25 documented as of this encounter
--- OUTSIDE RECORDS SUMMARY | 2025-05-30 00:32 | XMS_ITS | Clinical Summary ---
Author Organization [facility] Address [address] [place] [address] Care Team Providers Care Auto Claims Adjuster Name Role Phone Giuseppe Pratt MD Unavailable [phone] BLAISE Pryor Jr., Maxime Foreman Primary Care Provide r Tran Londono MD Unavailable [phone] Allergies Active Allergy Reactions Criticality Noted Date [...] 30 days 3 each 3 4 Active insulin syringe-needle U-100 (Monoject Syringe) 1/2 mL [...] Active Additional Information Patient not taking.Reported on 05/23/2025 cyanocobalamin (Vitamin B-12) 1,000 mcg/mL injectionIndic ations:Vitamin B12 deficiency Inject 1 mL (1,000 mcg total) under the skin every 30 (thirty) days 6 mL 1 4 Active syringe with needle 1 mL 28 gauge x 1/2 syringeIndicat ions:Vitamin B12 deficiency 1 Needle every 30 (thirty) days Please use 1 needle every 30 days to inject Vitamin B 12 injection 12 each 4 Active fluocinolone in oil (DermOtic) 0.01 % drops [...] due 09/2025. 1 mL 5 5 Active estradioL (Estrace) 0.01 % (0.1 mg/gram) vaginal creamIndicatio ns:Genitourina ry syndrome of menopause Insert 2 g into the vagina 2 (two) times a week Patient takes on Wednesdays and Sundays 42.5 g 3 5 Active Estrace 0.01 % (0.1 mg/gram) vaginal cream Insert 2 g into the vagina 2 (two) times a week Patient takes on Wednesdays and Sundays 1 05/17/20 25 Discontin ued(Reord er) ALPRAZolam (XANAX) 0.25 mg tablet Take 1 tab 30 minutes prior to MRI, may repeat once. Do not drive after use. 2 tablet 4 05/23/20 25 Discontin ued(Thera py completed ) Estrace 0.01 % (0.1 mg/gram) vaginal creamIndicatio ns:Genitourina ry syndrome of menopause Insert 2 g into the vagina 2 (two) times a week Patient takes on Wednesdays and Sundays 42.5 g 3 5 05/23/20 25 Discontin ued(Reord er) Active Problems Problem [...] Cervical cancer screening: routine follow up with production proofreader Skin cancer screening: follows with derm for psoriasis Bone health: DEXA: normal 2022. Vitamin D normal 2022 CRC screening: only ileal disease, but FH. Q 5 years but will likely get more often for disease activity. Assessment & Plan (02/25/2023 11:40 AM CDT): She is going to check with her PCP for shingrix and prevnar 20 Assessment & Plan (08/20/2022 9:30 AM BARREL RIFLER OPERATOR): Schedule c scope Assessment & Plan (05/07/2022 [...] treatment: Stelara q 8 weeks. TPMT: ? 2020 EGD showed gastric ulcer while on NSAIDs Seen by OSH GI for longstanding bloating, constipation 08/02/2011 EGD normal Path: normal stomach and duodenal biopsies Breath test apparently positive for SIBO. Treated with rifaxamin with improvement. 2019 developed Fe def anemia. 08/25/2018 EGD normal [...] needs Assessment & Plan (07/13/2024 4:02 PM BARREL RIFLER OPERATOR): Endoscopic remission on stelara with primarily fibrotic strictures that have been successfully dilated. Continue stelara indefinitely. Repeat enteroscopy with dilation with Dr. Degroot in one year as planned. Assessment & Plan (01/06/2024 2:11 PM CDT): Clinical remission on stelara. No more obstructive symptoms after dilations. Continue stelara. Repeat c scope in May with Dr. Degroot for repeat dilation. 2 day prep. Extra miralax for 2 weeks prior. Assessment & Plan (06/17/2023 1:26 PM BARREL RIFLER OPERATOR): Asymptomatic after stricture dilation. Tolerating more foods. [...] suffice. Assessment & Plan (08/20/2022 9:32 AM BARREL RIFLER OPERATOR): Recent admit with SBO with transition point [...] her local GI or with us. Her group sales coordinator is prescribing Stelara. If she has inflammation will need to have discussion with rheum since Stelara seems to be controlling her other autoimmune diseases. Iron deficiency anemia 10/02/2020 Assessment & Plan (08/20/2022 9:28 AM BARREL RIFLER OPERATOR): Has required IV Fe in the past. [...] rheumatology. Assessment & Plan (07/13/2024 4:02 PM BARREL RIFLER OPERATOR): Stable. Follows with rheum. Acquired hallux valgus [...] overlap. Assessment & Plan (07/13/2024 12:57 PM BARREL RIFLER OPERATOR): All immunosuppressants carry a theoretical risk of [...] hepatotoxicity. Assessment & Plan (06/17/2023 1:20 PM BARREL RIFLER OPERATOR): All immunosuppressants carry a theoretical risk of [...] steroids. Assessment & Plan (08/20/2022 9:28 AM BARREL RIFLER OPERATOR): Risk of infection with stelara. Monitor cbc, [...] with other complication 04/18/20232024 Social anxiety disorder 09/24/2022 0910/2022 Generalized anxiety disorder 09/24/2022 03/20/2023 Crohn's disease [...] Encounters Date Type Department Care Team Description 05/25/2025 Results Follow-Up [facility] Medicine Gastroenterology [address] 2[address] [place] [address] Sophia Rodriguez, Surgical pathology 05/23/2025 8:02 AM BARREL RIFLER OPERATOR Anesthesia Event [facility] Digestive Disease Center [address] [place] [address] Ifeanyi Goodwin MD 05/23/2025 8:00 AM BARREL RIFLER OPERATOR - 05/23/2025 9:30 AM BARREL RIFLER OPERATOR Surgery [facility] [place] [address] [place] [address] Sophia Rodriguez, COLON BIOPSY 05/23/2025 6:48 AM BARREL RIFLER OPERATOR - 05/23/2025 10:06 AM BARREL RIFLER OPERATOR Hospital Encounter [facility] [place] [address] [facility] [address] [place] [address] Sophia Rodriguez, Stricture intestinal; Crohn's disease with complication, unspecified gastrointestinal tract location (HCC) Discharge Disposition: Discharge to home or self care 05/17/2025 10:00 AM BARREL RIFLER OPERATOR Lab [address] [address] Iron deficiency anemia due to chronic blood loss; Vitamin B12 deficiency 05/17/2025 9:45 AM BARREL RIFLER OPERATOR Office Visit [facility] Medicine Obstetrics and Gynecology [address] [facility] [address] 1[address] [place] [address] Abbey Ballard NP Encounter for well woman exam with routine gynecological exam (Primary Dx); Encounter for screening mammogram for malignant neoplasm of breast; Genitourinary syndrome of menopause 05/16/2025 Telephone [facility] Specialty Services [address] [place] [address] Tete Matthews RN GI Preprocedure 04/22/2025 1:46 PM CDT - 04/22/2025 11:59 PM CDT Hospital Encounter [address] [address] Postmenopausal bleeding Discharge Disposition: Discharge to home or self care 04/21/2025 Telephone [facility] Neurology [address] [place] [address] Katie Quinones NP Prior Auth (Ubrelvy 100MG) 04/05/2025 Telephone [facility] Gastroenterology [address] [place] [address] Millie Feliz RN Follow-up 03/22/2025 11:00 AM CDT Office Visit [facility] Rheumatology [address] [place] [address] Dina Argueta MD Seronegative inflammatory arthritis (Primary Dx) 03/08/2025 11:20 AM CDT Lab [facility] Medical Office Building [address] [address] Crohn's disease with complication, unspecified gastrointestinal tract location (HCC); High risk medications (not anticoagulants) long-term use 03/08/2025 Telephone [facility] Gastroenterology [address] [facility] [address] [facility] [address] 12[address] [place] [address] [place] [address] Nerissa Harrington 03/08/2025 Telephone [facility] Gastroenterology [address] [facility] [address] [place] [address] Sophia Rodriguez, GI Preprocedure 03/08/2025 Telephone [facility] Gastroenterology [address] [facility] [address] [place] [address] Risa Carty LPN 03/08/2025 Telephone [facility] Gastroenterology [address] [facility] [address] [place] [address] Nga Almonte RMA from Last 3 Months Immunizations Immunization Administration [...] thrombosis ( DVT) of right upper extremity (HCC) 01/18/2019 Anxiety 01/18/2019 BRANDY (juvenile idiopathic art hritis) ([facility]) 03/17/2018 Rheumatoid arthritis(714.0) 11/03/2010 Psoriasis 08/22/2014 Anemia Arthritis Depression Crohn disease ([facility]) 12/2019 Family History Medical History Relation Name [...] Answered Alcohol Use Standard Drinks/Week Comments Yes 1 (1 standard drink = 0.6 oz pur e alcohol) PHQ-2 Answer Date Recorded PHQ-2 Total Score (If total score is 3 or more points, staff should administer the PHQ-9) 0 02/03/2023 AUDIT-C Answer Date Recorded Q1: How often do you have a drink containing alc ohol? 2-4 times a month 05/23/2025 Q2: How many drinks containi ng alcohol do you have on a typical day when you are drinking? 1 or 2 05/23/2025 Frequency of Binge Drinking Not on file 05/07 Personal Safety Answer Date Recorded Have you ever been in or are you currently in a harmful physical or emotional relationship or is someone making you feel afraid or unsafe? Denies 05/23/2025 Comments No Sex and Gender Information Value Date Recorded Sex Assigned at Not on file Legal Sex Female 8:25 PM BARREL RIFLER OPERATOR Gender Identity Not on file Sexual Orientation Not on file Obstetrics History Para Term AB IAB SAB Ectopic Multiple Livin g Live Births 4 4 4 Date Outcome GA Total Labor Labor//3rd Weight Sex Type Anes PTL Lucrecia A1 A5 Name Clin Term Term Term Term Last Filed Vital Signs Vital Sign Reading Time Taken Comments Blood Pressure 102/66 05/23/2025 9:46 AM BARREL RIFLER OPERATOR Pulse 56 05/23/2025 9:46 AM BARREL RIFLER OPERATOR Temperature 36.4 C (97.5 F) 05/23/2025 9:26 AM BARREL RIFLER OPERATOR Respiratory Rate 14 05/23/2025 9:46 AM BARREL RIFLER OPERATOR Oxygen Saturation 100% 05/23/2025 9:46 AM BARREL RIFLER OPERATOR Inhaled Oxygen Concentration - - Weight 67.6 kg (149 lb) 05/23/2025 7:11 AM BARREL RIFLER OPERATOR Height 167.6 cm (5' 6) 05/23/2025 7:11 AM BARREL RIFLER OPERATOR Body Mass Index 24.05 05/23/2025 7:11 AM BARREL RIFLER OPERATOR Plan of Treatment Health Maintenance Due Date [...] Procedure Name Priority Date/Time Associated Diagnosis Comments SURGICAL PATHOLOGY Routine 05/23/2025 9: 11 AM BARREL RIFLER OPERATOR Stricture intestinal Crohn's disease with complication, unspecified gastrointestinal tract location (HCC) RETROGRADE SMALL BOWEL ENTEROSCOPY 05/23/2025 8:06 AM BARREL RIFLER OPERATOR SMALL BOWEL DILATION 05/23/2025 8:02 AM BARREL RIFLER OPERATOR Stricture intestinal Crohn's disease with complication, unspecified gastrointestinal tract location (HCC) COLON BIOPSY 05/23/2025 8:02 AM BARREL RIFLER OPERATOR Stricture intestinal Crohn's disease with complication, unspecified gastrointestinal tract location (HCC) EGFR Routine 05/17/2025 10:30 AM BARREL RIFLER OPERATOR Iron deficiency anemia due to chronic blood loss Vitamin B12 deficiency DIFFERENTIAL AUTO Routine 05/17/2025 10:30 AM BARREL RIFLER OPERATOR Iron deficiency anemia due to chronic blood loss Vitamin B12 deficiency COMPREHENSIVE METABOLIC PANEL Routine 05/17/2025 10:30 AM BARREL RIFLER OPERATOR Iron deficiency anemia due to chronic blood loss Vitamin B12 deficiency CBC WITH AUTO DIFFERENTIAL Routine 05/17/2025 10:30 AM BARREL RIFLER OPERATOR Iron deficiency anemia due to chronic blood loss Vitamin B12 deficiency IRON PROFILE W/ IBC Routine 05/17/2025 10:30 AM BARREL RIFLER OPERATOR Iron deficiency anemia due to chronic blood loss FERRITIN Routine 05/17/2025 10:30 AM BARREL RIFLER OPERATOR Iron deficiency anemia due to chronic blood loss Vitamin B12 deficiency VITAMIN B12 Routine 05/17/2025 10:30 AM BARREL RIFLER OPERATOR Vitamin B12 deficiency US PELVIS W ENDOVAGINAL [...] Recently Relevant to Health Maintenance Results * Surgical pathology (05/23/2025 9:11 AM BARREL RIFLER OPERATOR) Tissue (Ileum, Biopsy) 05/23/2025 9:11 AM BARREL RIFLER OPERATOR Tissue specimen (specimen) (Ileum, Biopsy) 05/23/2025 9:14 AM BARREL RIFLER OPERATOR Tissue specimen (specimen) (Colon, Biopsy) 05/23/2025 9:17 AM BARREL RIFLER OPERATOR Tissue specimen (specimen) (Colon, Biopsy) 05/23/2025 9:19 AM BARREL RIFLER OPERATOR Narrative PATHOLOGY [facility] - 05/24/2025 4:07 PM BARREL RIFLER OPERATOR EPIC results best viewed via link to PDF [facility] [place] [address] Note to Patients: This report may contain a detailed description of human tissue sent by a health care provider to the laboratory for pathologic evaluation. The content of this report is essential for diagnosis and may provide important critical findings. This information may be unfamiliar to patients to review without a medical professional present. It is advised that the patient review this report in the presence of a health care provider who can answer questions and explain the details. SURGICAL PATHOLOGY REPORT FINAL Patient Name: SOPHIA ACOSTA Gender: F : 1975 (Age: 49) Address: [address] [place], [place] [address] Hospital #: [id number] Taken:05/23/2025 Received:05/23/2025 Reported: 05/24/2025 Patient Type: [facility] Service: Gastro Location: Physician(s): MD Maxime Taylor P.A. Martin H. Gregory, M.D. Diagnosis: A. Small bowel, ileum, biopsy - Ileal mucosa with no significant pathologic change B. Small bowel, ileal stricture at 40, biopsy - Ileal mucosa with focal active ileitis and hyperplastic epithelial changes - Negative for dysplasia C. Large bowel, right, biopsy - Colonic mucosa with no significant pathologic change D. Large bowel, left, biopsy - Colonic mucosa with no significant pathologic change loli/05/24/2025 15:50 By this signature, I attest that the above diagnosis is based upon my personal examination of the slides(and/or other material indicated in the diagnosis). Tesfaye Cross M.D. Report Electronically Reviewed and Signed Out By Tesfaye Cross M.D. 05/24/2025 16:07:59 Diagnosis Comment Patient's history of Crohn's disease is noted. All parts are negative for granulomata, dysplasia, and viral cytopathic effect. Ashlee Pink M.D. History: The patient is a 49-year-old woman with stricturing ileal Crohn's disease, presenting for endoscopy. Operative procedure: Retrograde small intestine via anus/colon stoma; colon dilation 10 R> strict with biopsy. Specimen(s) Received: A: Cold biopsy ileum B: Cold biopsy ileum stricture @40 C: Cold biopsy right colon D: Cold biopsy left colon Gross Description: Received in four formalin jars labeled with the patient's identifiers. A. Labeled ileum and consists of multiple abad fragment(s) of soft tissue measuring 0.8 x 0.6 x 0.1 cm in aggregate. Labeled A1. Jar 0. B. Labeled ileum stricture at 40 and consists of multiple abad-pink fragment(s) of soft tissue measuring 0.6 x 0.4 x 0.1 cm in aggregate. Labeled B1. Jar 0. C. Labeled right colon and consists of multiple abad fragment(s) of soft tissue measuring 0.5 x 0.3 x 0.1 cm in aggregate. Labeled C1. Jar 0. D. Labeled left colon and consists of multiple abad-red fragment(s) of soft tissue measuring 0.7 x 0.3 x 0.1 cm in aggregate. Labeled D1. Jar 0. sxst/05/23/2025 12:20 PA(s): Natividad Sam By this signature, I attest that the above diagnosis is based upon my personal examination of the slides(and/or other material). Addenda/Procedures The performance characteristics of some immunohistochemical stains, fluorescence in-situ hybridization tests and immunophenotyping by flow cytometry cited in this report (if any) were determined by the Surgical Pathology and Flow Cytometry Departments at [facility] as part of an ongoing quality control specialist program and in compliance with federally mandated regulations drawn from the Clinical Laboratory Improvement Act of 1988 (CLIA '88). Some of these tests rely on the use of analyte specific reagents and are subject to specific labeling requirements by the US Food and Drug Administration. Such diagnostic tests may only be performed in a facility that is certified by the Department of Health and Human Services as a high complexity laboratory under CLIA '88. The FDA has determined that such clearance or approval is not necessary. This test is used for clinical purposes. It should not be regarded as investigational or for research. Nevertheless, federal rules concerning the medical use of analyte specific reagents require that the following disclaimer be attached to the report: This test was developed and its performance characteristics determined by the Surgical Pathology and Flow Cytometry Departments of [facility]. It has not been cleared or approved by the U. S. Food and Drug Administration. IMAGES AND SCANNED DOCUMENTS, IF INCLUDED, ONLY VIEWABLE IN PDF VERSION OF REPORT us Sophia Rodriguez DO LAB PATHOLOGY ORDERABLES F inal Result PATHOLOGY [facility] 3rd Floor [place], [place] [phone] * Retrograde Small Bowel Enteroscopy (05/23/2025 8:06 AM BARREL RIFLER OPERATOR) Anatomical Region Laterality Modality Other Narrative Procedure Note Sophia Rodriguez, - 05/23/2025 8:06 AM CST GI ENDOSCOPY [facility] Patient Name: Sophia Acosta Procedure Date: 05/23/2025 8:06 AM Date of : 1975 Admit Type: Outpatient Age: 49 Gender: Female Attending MD: Sophia Rodriguez D.O., Room: [facility] ENDOSCOPY ROOM 9 Note Status: Finalized Procedure: Lower Device-Assisted Enteroscopy withoutFluoroscopy Indications: For therapy of Crohn's disease of the colon with multifocal ileal strictures Referring MD: J Luis Baeza M.D. Providers: Sophia Rodriguez D.O. Medicines: Monitored Anesthesia Care Complications: No immediate complications. Estimated Blood Loss: Estimated blood loss was minimal. Procedure: Pre-Anesthesia Assessment: - The risks and benefits of the procedure and the sedation options and risks were discussed with the patient. All questions were answered and informed consent was obtained. After I obtained informed consent, the scope was passed under direct vision using theballoon-assisted technique. Throughout the procedure, the patient's blood pressure, pulse, and oxygen saturations were monitored continuously. The SIF Q180 [id number] endoscope was introduced through the anus andadvanced to the proximal ileum. The small bowel enteroscopywas technically difficult and complex due tosignificant looping. The patient tolerated the procedurewell. Findings: The ileum, 20 cm from the ileocecal valve, ileum, 40 cm from the ileocecal valve and ileum, 45 cm from the ileocecal valve contained benign-appearing, intrinsic moderate stenoses measuring less than onecm (in length) x 1.1-1.2cm cm (inner diameter) that were traversed after dilation. These were associated with ulcerated mucosa. A TTS dilatorwas passed through the scope. Dilation with a 12-13.5-15 mm balloondilator was performed sequentially to 15 mm, 13.5 mm and 15 mm from distal to proximal stricture sites. The dilation site was examined and showed moderate mucosal disruption, moderate improvement in luminalnarrowing and no perforation. Biopsies were taken with a cold forceps for histology from stricture sites. The most distal stricture was markedby tattoo. The stricture at 40 which appeared more ulcerated wasbiopsied. The remainder of the exam in the terminal ileum was normal. Biopsies taken. The colon (entire examined portion) appeared normal on limited examination in the setting of device assisted enteroscopy. Biopsieswere taken with a cold forceps for histology from the right and leftcolon. The perianal and digital rectal examinations were normal. The Simple Endoscopic Score for Crohn's Disease was determined basedon the endoscopic appearance of the mucosa in the following segments: - Ileum: Findings include aphthous ulcers less than 0.5 cm in size, 10-30% ulcerated surfaces, less than 50% of surfaces affected and multiple narrowings that can be passed. Segment score: 6. - Right Colon: Findings include no ulcers present, no ulcerated surfaces, no affected surfaces and no narrowings. Segment score: 0. - Transverse Colon: Findings include no ulcers present, noulcerated surfaces, no affected surfaces and no narrowings. Segment score: 0. - Left Colon: Findings include no ulcers present, no ulceratedsurfaces, no affected surfaces and no narrowings. Segment score: 0. - Rectum: Findings include no ulcers present, no ulcerated surfaces,no affected surfaces and no narrowings. Segment score: 0. - Total SES-CD aggregate score: 6. Impression: Crohn's ileitis (SES-CD:6) with multifocalstrictures in the distal ileum (described above, distal most marked by tattoo) with improved caliber following prior dilation. Further treatment was performed atall 3 stricture sites to 15 mm, 13.5 mm, and 15 mm from distal to proximal. Recommendation: - Observe patient in recovery. - Continue present medications. - Await pathology results. - Resume previous diet. - Return to referring physician as previously scheduled. - Repeat retrograde SBE in 12 months. - In the unusual situation that you developabdominal pain, bleeding or other significant problems in the days following this procedure please call my officeat [phone] to speak to my nurse. After hours and evenings please call [phone] and speak to theGI fellow transitions rn care coordinator. Please tell them that Dr. Rodriguezdid your procedure and that your were instructed tohave the fellow call me or the physician covering for meto discuss the management of your condition. If youhave an urgent problem, [facility] and have the ER doctor call my office duringthe day or [facility] transfer ([phone]) center afterhours and weekends to arrange admission or transfer toour facility. Attending Participation: I personally performed the entire procedure. Electronically signed by Sophia Rodriguez MD Sophia Rodriguez D.O. 05/23/2025 9:32:26 AM . Number of Addenda: 0 Note Initiated On: 05/23/2025 8:06 AM us Sophia Rodriguez DO ENDOSCOPY PROCEDURES Edite d Result - Final * eGFR (05/17/2025 10:30 AM BARREL RIFLER OPERATOR) eGFR >90 >=60 mL/min/1. 73 m2 Comment: [...] reviewed 2021. Blood 05/17/2025 10:3 0 AM BARREL RIFLER OPERATOR 05/17/2025 10:30 AM BARREL RIFLER OPERATOR us May Madelin Hinton [employer] LAB BLOOD ORDER MAXIMO Final Result EILANA HALL [facility] Department [place] [address] * (ABNORMAL) Differential, auto (05/17/2025 10:30 AM BARREL RIFLER OPERATOR) Neutrophil abs 7.31(H) 1.50 - 6.50 K/cumm Comment:Testing performed by : [address], [place] [address] Imm gran abs 0.03 0.00 - 0.10 K/cumm [facility] Lymphocyte abs 1.36 0.80 - 3.30 K/cumm [facility] Monocyte abs 0.56 0.20 - 0.80 K/cumm [facility] Eosinophil abs 0.08 0.00 - 0.50 K/cumm [facility] Basophil abs 0.05 0.00 - 0.10 K/cumm [facility] Neutrophil pct 77.8 % [facility] Comment: Interpretive Data Percent cell count reference ranges are not reported, since discordance with absolute values may lead to misinterpretation of CBC data. Current Interpretive Data was last revised on 2017. Imm gran pct 0.3 % [facility] Comment: Interpretive Data Percent cell count reference ranges are not reported, since discordance with absolute values may lead to misinterpretation of CBC data. Current Interpretive Data was last revised on 2017. Lymphocyte pct 14.5 % [facility] Comment: Interpretive Data Percent cell count reference ranges are not reported, since discordance with absolute values may lead to misinterpretation of CBC data. Current Interpretive Data was last revised on 2017. Monocyte pct 6.0 % [facility] Comment: Interpretive Data Percent cell count reference ranges are not reported, since discordance with absolute values may lead to misinterpretation of CBC data. Current Interpretive Data was last revised on 2017. Eosinophil pct 0.9 % [facility] Comment: Interpretive Data Percent cell count reference ranges are not reported, since discordance with absolute values may lead to misinterpretation of CBC data. Current Interpretive Data was last revised on 2017. Basophil pct 0.5 % [facility] Comment: Interpretive Data Percent cell count reference ranges are not reported, since discordance with absolute values may lead to misinterpretation of CBC data. Current Interpretive Data was last revised on 2017. Blood 05/17/2025 10:3 0 AM BARREL RIFLER OPERATOR 05/17/2025 10:30 AM BARREL RIFLER OPERATOR us Qing Hinton AIRCRAFT INSTRUMENT MECHANIC LAB BLOOD ORDER MAXIMO Final Result [facility] [place] [address] * Iron profile w/ IBC (05/17/2025 10:30 AM BARREL RIFLER OPERATOR) [facility] Iron 99 35 - 145 mcg/dL TIBC 331 250 - 400 mcg/dL [facility] Transferrin saturation 30 20 - 50 % [facility] Blood 05/17/2025 10:3 0 AM BARREL RIFLER OPERATOR 05/17/2025 11:35 AM BARREL RIFLER OPERATOR us Qing Hinton NP LAB BLOOD ORDER MAXIMO Final Result Performing Organization Address [facility] Co de Phone Number [facility] [place] [address] * (ABNORMAL) CBC with auto differential (05/17/2025 10:30 AM BARREL RIFLER OPERATOR) [facility] WBC 9.39 3.80 - 9.90 K/cumm Comment:Testing performed by : [address] [address] Hgb 13.4 11.9 - 15.5 g/dL [facility] Comment:Testing performed by : [address] [address] Hct 39.6 35.6 - 45.5 % [facility] Comment:Testing performed by : [address] [address] Plt 323 150 - 400 K/cumm [facility] Comment:Testing performed by : [address] [address] MPV 10.8 9.1 - 12.3 fL [facility] RBC 4.47 3.90 - 5.20 M/cumm [facility] MCV 88.6 81.3 - 96.4 fL [facility] MCH 30.0 27.1 - 33.3 pg [facility] MCHC 33.8 32.3 - 35.7 g/dL [facility] RDW CV 12.3 11.1 - 14.9 % [facility] RDW SD 39.7 35.7 - 48.1 fL [facility] NRBC abs 0.00 0.00 - 0.01 K/cumm [facility] ANC Prelim 7.31(H) 1.50 - 6.50 K/cumm [facility] Comment: Interpretive Data The rapid ANC is a preliminary automated count and may vary from the final ANC (Neut Abs) reported in the WBC differential that follows. Current interpretive data was last revised 2024. Blood 05/17/2025 10:3 0 AM BARREL RIFLER OPERATOR 05/17/2025 10:30 AM BARREL RIFLER OPERATOR us May Madelin Carlito Fille AIRCRAFT INSTRUMENT MECHANIC LAB BLOOD ORDER MAXIMO Final Result Performing Organization Address City/[facility] Co de Phone Number [facility] [place] [address] * Ferritin (05/17/2025 10:30 AM BARREL RIFLER OPERATOR) Ferritin 41 13 - 150 ng/mL Blood 05/17/2025 10:3 0 AM BARREL RIFLER OPERATOR 05/17/2025 11:35 AM BARREL RIFLER OPERATOR us May Madelin Carlito Fille AIRCRAFT INSTRUMENT MECHANIC LAB BLOOD ORDER MAXIMO Final Result Performing Organization Address City/[facility]/ZIP Co de Phone Number [facility] [place] [address] * Vitamin B12 (05/17/2025 10:30 AM BARREL RIFLER OPERATOR) Vitamin B12 340 230 - 1,250 pg/mL Blood 05/17/2025 10:3 0 AM BARREL RIFLER OPERATOR 05/17/2025 11:35 AM BARREL RIFLER OPERATOR us May Madelin Carlito Fille AIRCRAFT INSTRUMENT MECHANIC LAB BLOOD ORDER MAXIMO Final Result Performing Organization Address City/[facility] Co de Phone Number [facility] Department [place] [address] * Comprehensive metabolic panel (05/17/2025 10:30 AM BARREL RIFLER OPERATOR) Sodium 140 135 - 145 mmol/L Comment:Testing performed by : [facility], [address] [place] [address] Potassium, pl 4.1 3.3 - 4.9 mmol/L [facility] Chloride 105 97 - 110 mmol/L [facility] CO2 27 22 - 32 mmol/L [facility] Anion gap 8 2 - 15 mmol/L [facility] BUN 19 6 - 25 mg/dL [facility] Creatinine 0.67 0.60 - 1.10 mg/dL [facility] Glucose 88 70 - 199 mg/dL [facility] Comment: Interpretive Data Fasting glucose >/= [...] 2022. Calcium 9.3 8.5 - 10.3 mg/dL [facility] Bilirubin, total 0.4 0.1 - 1.2 mg/dL [facility] Protein, pl 7.5 6.5 - 8.5 g/dL [facility] Albumin 4.7 3.5 - 5.0 g/dL [facility] Alk phos 64 40 - 130 Units/L [facility] ALT 18 7 - 45 Units/L [facility] AST 23 10 - 45 Units/L [facility] Blood 05/17/2025 10:3 0 AM BARREL RIFLER OPERATOR 05/17/2025 10:30 AM BARREL RIFLER OPERATOR us May Madelin Hinton AIRCRAFT INSTRUMENT MECHANIC LAB BLOOD ORDER MAXIMO Final Result [facility] [place] [address] * US Pelvis W Endovaginal (04/22/2025 2:09 [...] by Juanjo Mehta M.D. T: Report ID: [id number] Reading Location: [id number] Procedure Note Juanjo Mehta MD - 04/24/2025 [...] by Juanjo Mehta M.D. T: Report ID: [id number] Reading Location: [place] [address] us Tran Londono MD IMG US PROCEDURES Final Result * eGFR (03/08/2025 [...] was last reviewed 2021. Testing performed by: [facility], [address] [place] [address]., [address] Blood 03/08/2025 11:2 8 AM CDT 03/08/2025 12:36 PM CDT us J Luis Baeza MD LAB BLOOD ORDERABLES Final Result [facility] [address] [facility] Department [place] [address] * Differential, auto (03/08/2025 11:28 AM CDT) [facility] Neutrophil abs 5.27 1.50 - 6.50 K/cumm Comment:Testing performed by : [address] [address] Imm gran abs 0.03 0.00 - 0.10 K/cumm [facility] Comment:Testing performed by : [address], [place]., [address] Lymphocyte abs 1.46 0.80 - 3.30 K/cumm [facility] Comment:Testing performed by : [address], [place]., [address] Monocyte abs 0.53 0.20 - 0.80 K/cumm [facility] Comment:Testing performed by : [address] [address] Eosinophil abs 0.17 0.00 - 0.50 K/cumm [facility] Comment:Testing performed by : [address] [address] Basophil abs 0.04 0.00 - 0.10 K/cumm [facility] Comment:Testing performed by : [address] [address] Neutrophil pct 70.2 % [facility] Comment: Interpretive Data Percent cell count reference ranges are not reported, since discordance with absolute values may lead to misinterpretation of CBC data. Current Interpretive Data was last revised on 2017. Testing performed by: [address] [address] Imm gran pct 0.4 % [facility] Comment: Interpretive Data Percent cell count reference ranges are not reported, since discordance with absolute values may lead to misinterpretation of CBC data. Current Interpretive Data was last revised on 2017. Testing performed by: [address] [address] Lymphocyte pct 19.5 % [facility] Comment: Interpretive Data Percent cell count reference ranges are not reported, since discordance with absolute values may lead to misinterpretation of CBC data. Current Interpretive Data was last revised on 2017. Testing performed by: [address] [address] Monocyte pct 7.1 % [facility] Comment: Interpretive Data Percent cell count reference ranges are not reported, since discordance with absolute values may lead to misinterpretation of CBC data. Current Interpretive Data was last revised on 2017. Testing performed by: [address] [address] Eosinophil pct 2.3 % [facility] Comment: Interpretive Data Percent cell count reference ranges are not reported, since discordance with absolute values may lead to misinterpretation of CBC data. Current Interpretive Data was last revised on 2017. Testing performed by: [address] [address] Basophil pct 0.5 % [facility] Comment: Interpretive Data Percent cell count reference ranges are not reported, since discordance with absolute values may lead to misinterpretation of CBC data. Current Interpretive Data was last revised on 2017. Testing performed by: [address] [address] Blood 03/08/2025 11:2 8 AM CDT 03/08/2025 12:38 PM CDT us J Luis Baeza MD LAB BLOOD ORDERABLES Final Result [facility] [address] [facility] Department of Laboratories [place], [place] [id number] * CBC with auto differential (03/08/2025 11:28 AM CDT) WBC 7.50 3.80 - 9.90 K/cumm Comment:Testing performed by : [address] [address] Hgb 12.9 11.9 - 15.5 g/dL [facility] Comment:Testing performed by : [address] [address] Hct 39.1 35.6 - 45.5 % [facility] Comment:Testing performed by : [address] [address] Plt 335 150 - 400 K/cumm [facility] Comment:Testing performed by : [address] [place]., [address] MPV 11.7 9.1 - 12.3 fL [facility] Comment:Testing performed by : [address] [address] RBC 4.35 3.90 - 5.20 M/cumm [facility] Comment:Testing performed by : [address] [address] MCV 89.9 81.3 - 96.4 fL [facility] Comment:Testing performed by : [address] [address] MCH 29.7 27.1 - 33.3 pg [facility] Comment:Testing performed by : [address] [address] MCHC 33.0 32.3 - 35.7 g/dL [facility] Comment:Testing performed by : [address], [address] RDW CV 12.8 11.1 - 14.9 % [facility] Comment:Testing performed by : [address] [address] RDW SD 42.1 35.7 - 48.1 fL [facility] Comment:Testing performed by : [address] [address] NRBC abs 0.00 0.00 - 0.01 K/cumm [facility] Comment:Testing performed by : [address] [address] Blood 03/08/2025 11:2 8 AM CDT 03/08/2025 12:38 PM CDT us J Luis Baeza MD LAB BLOOD ORDERABLES Final Result [facility] [address] [facility] Department [place] [address] * CRP (acute phase) (03/08/2025 11:28 AM CDT) [facility] CRP 1.5 <=10.0 mg/L Comment:Testing performed by : [address] [address] Blood 03/08/2025 11:2 8 AM CDT 03/08/2025 12:36 PM CDT J Luis Baeza MD LAB BLOOD ORDERABLES Final Result [facility] [address] [facility] Department [place] [address] * Comprehensive metabolic panel (03/08/2025 11:28 AM CDT) Sodium 142 135 - 145 mmol/L Comment:Testing performed by : [address] [address] Potassium, pl 4.2 3.3 - 4.9 mmol/L [facility] Comment:Testing performed by : [address] [address] Chloride 103 97 - 110 mmol/L [facility] Comment:Testing performed by : [address] [address] CO2 24 22 - 32 mmol/L [facility] Comment:Testing performed by : [address] [address] Anion gap 15 2 - 15 mmol/L [facility] Comment:Testing performed by : [address] [address] BUN 18 6 - 25 mg/dL [facility] Comment:Testing performed by : [address] [address] Creatinine 0.60 0.60 - 1.10 mg/dL [facility] Comment:Testing performed by : [address] [address] Glucose 85 70 - 199 mg/dL [facility] Comment: Interpretive Data Fasting glucose >/= 126 [...] was last revised 2022. Testing performed by: [address] [address] Calcium 9.9 8.5 - 10.3 mg/dL [facility] Comment:Testing performed by : [address] [address] Bilirubin, total 0.3 0.1 - 1.2 mg/dL [facility] Comment:Testing performed by : [address] [address] Protein, pl 6.9 6.5 - 8.5 g/dL [facility] Comment:Testing performed by : [address] [address] Albumin 4.5 3.5 - 5.0 g/dL [facility] Comment:Testing performed by : [address] [address] Alk phos 84 40 - 130 Units/L [facility] Comment:Testing performed by : [address] [address] ALT 36 7 - 45 Units/L [facility] Comment:Testing performed by : [address] [address] AST 30 10 - 45 Units/L [facility] Comment:Testing performed by : [address] [address] Blood 03/08/2025 11:2 8 AM CDT 03/08/2025 12:36 PM CDT us J Luis Baeza MD LAB BLOOD ORDERABLES Final Result [facility] [address] [facility] [place] [address] * (ABNORMAL) Screening Mammogram Bilateral W Jasson [...] Attending MD: J Luis Baeza M.D. Room: [facility] ENDOSCOPY ROOM 02 Note Status: Finalized Procedure: [...] The scope was passed under direct vision.The [id number] was introduced through the anusand advanced to [...] Most Recently Relevant to Health Maintenance Insurance [facility] Advance Directives For more information, please contact: [phone] * Full Code (Latest Code Status on File) Date Activated Date Inactivated Comments 05/23/2025 7:02 AM 05/23/2025 2:11 PM * Full Code Date Activated Date Inactivated Comments 05/24/2024 7:49 AM 05/24/2024 3:03 PM * Full Code Date Activated Date Inactivated Comments 05/22/2023 12:02 PM 05/22/2023 7:27 PM * Full Code Date Activated Date Inactivated Comments 11/05/2022 2:16 PM 11/10/2022 9:56 PM * Full Code Date Activated Date Inactivated Comments 10/25/2022 7:47 AM 10/25/2022 1:58 PM Care Teams Auto Claims Adjuster Relationship Specialty Start Date End Date Maxime Pryor Jr., PA [address] [place] [address] PCP - General Family Medicine 12/23/23 Giuseppe Pratt MD Medical Oncologist/Health Consultant Hematology and Oncology 02/19/19 Tran Londono MD 2022 [address] [address] Referring Physician Gynecology 01/06/25
--- OUTSIDE RECORDS SUMMARY | 2025-05-30 00:32 | XMS_ITS | Clinical Summary ---
Author Organization [facility] Address [address] [place] [address] Care Team Providers Care Pharmacy Messenger Name Role Phone Quintin Stevenson MD Primary Care Provider [phone] Source Comments [facility] [employer],non-owned Affiliates and Associated Physician Practices is amultiple site organization consisting of ambulatory clinics and hospital sitesin [place], [place], [place] and [place]. This disclosure is being madepursuant to the Care Everywhere program and may not contain all information available regarding this patient. Last updated 18.[facility] [employer] Social History Tobacco Use Types Packs/Day Years Used Date Smoking Tobacco: Never Assessed Comments Unknown Sex and Gender Information Value Date Recorded Sex Assigned at Not on file Legal Sex Female 6:27 AM DIRECTOR BIOLOGY Gender Identity Not on file Sexual Orientation [...] to complete this topic Insurance Care Teams Pharmacy Messenger Relationship Specialty Start Date End Date Quintin Stevenson MD [address] [address] [place] [address] PCP - General 11/28/21
--- OUTSIDE RECORDS SUMMARY | 2025-05-30 00:32 | XMS_ITS | Encounter Summary ---
Author Organization [facility] Address [address] [place] [address] Care Team Providers Care Manager [employer] Sales Name Role Phone Quintin Stevenson MD Primary Care Provider [phone] Encounter Details Date Type Department Care Team (Late st Contact Info) Description 11/28/2021 Lab Requisition [facility] [address] [facility] [place] [address] Max Junior MD [address] [place] [place] [address] Social History Tobacco Use Types Packs/Day Years Used Date Smoking Tobacco: Never Assessed Comments Unknown Sex and Gender Information Value Date Recorded Sex Assigned at Not on file Legal Sex Female 6:27 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 PRESIDENT 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 Gender Identity Not on file Sexual Orientation Not on file documented as of this encounter Plan of Treatment Not on file documented as of this encounter Procedures Procedure Name Priority Date/Time Associated Diagnosis Comments DERMATOPATHOLOGY Routine 11/27/2021 12:0 0 AM CDT documented in this encounter Results * DERMATOPATHOLOGY (11/27/2021 12:00 AM CDT) Case Report Dermatopathology Report Case: [id number] Authorizing Provider: Max Junior MD Collected: 11/27/2021 12:00 AM Ordering Location: [facility] Received: 11/28/2021 05:03 PM Pathologist: Henny Singleton MD Specimen: Skin, nasal tip 9:45 AM CDT DERMATOPATHOLOGY LABORATORY Final Diagnosis Specimen A. 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 Path # [id number]. 9:45 AM CDT DERMATOPATHOLOGY LABORATORY Gross Description Specimen A: Received is one formalin filled container labeled with the patient's name and designated nasal tip. The specimen consists of a shave biopsy measuring [id number]. Jar 0. 9:45 AM CDT DERMATOPATHOLOGY LABORATORY [...] characteristic determined by the Dermatopathology Laboratory at [facility], directed by Dr. Rhina Hurley. These tests need not be, and therefore are not, approved by the [place] Food and Drug Administration. The tests are used for clinical purposes. Billing Codes Specimen Charges Stain Charges [address]78[address] 1 2 9:45 AM CDT DERMATOPATHOLOGY LABORATORY Embedded Images 9:45 AM CDT DERMATOPATHOLOGY LABORATORY Pathology/Cytolog y TISSUE SPECIMEN FROM SKIN / Unknown 11/27/2021 11/28/2021 5:03 PM CDT us Max Junior MD LAB - PATHOLOGY/CYTOLOGY ORDER MAXIMO Final Result DERMATOPATHOLOGY LABORATORY [facility] - Department of Dermatology [address] [phone] documented in this encounter Visit Diagnoses Not on filedocumented in this encounter Care Teams Manager [employer] Sales Relationship Specialty Start Date End [place] Quintin [place] [address] [address] [place] [address] PCP - General 11/28/21 documented as of this encounter
--- OUTSIDE RECORDS SUMMARY | 2025-05-30 00:32 | XMS_ITS | Clinical Summary ---
Author Organization [facility] Address [address] [place] [address] Care Team Providers Care Seamstress Fitter Name Role Phone Maxime Pryor Primary Care Provider [phone] Allergies Active Allergy Reactions Criticality Noted Date [...] Comments Blood Pressure 122/77 07/01/2020 10:30 AM SPLITTING MACHINE OPERATOR HELPER Pulse 91 07/01/2020 8:29 AM SPLITTING MACHINE OPERATOR HELPER Temperature 36.5 C (97.7 F) 07/01/2020 8:29 AM SPLITTING MACHINE OPERATOR HELPER Respiratory Rate 16 07/01/2020 8:29 AM SPLITTING MACHINE OPERATOR HELPER Oxygen Saturation 100% 07/01/2020 10:33 AM SPLITTING MACHINE OPERATOR HELPER Inhaled Oxygen Concentration - - Weight 70.3 kg (155 lb) 07/01/2020 8:29 AM SPLITTING MACHINE OPERATOR HELPER Height 165.1 cm (5' 5) 07/01/2020 8:29 AM SPLITTING MACHINE OPERATOR HELPER Body Mass Index 25.79 07/01/2020 8:29 AM SPLITTING MACHINE OPERATOR HELPER Plan of Treatment Health Maintenance Due Date [...] patient's age to complete this topic [place] [address] [place] [address] Care Teams Seamstress Fitter Relationship Specialty Start Date End Date Maxime Pryor PA [address] [place] [id number] PCP - General PHYSICIAN 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 TECHNICAL OFFICER 01/14/19
--- NOTE | 2025-05-30 08:06 | WPDHPUPDATE1 ---
History and Physical Update Update Date/Time: 05/30/25 08:06 History and Physical has been reviewed, including an updated exam of the patient. There are NO changes in the patient's condition. Risks, benefits, and alternatives have been discussed and questions answered. Patient agrees to proceed with procedure.
--- NOTE | 2025-05-30 08:06 | PM.HPGS ---
History of Present Illness History of Present Illness Consent: Risks, benefits, and alternatives have been discussed and questions answered. Patient agrees to proceed with procedure. Chief complaint: post menopausal bleeding Narrative: Sophia Rodriguez is a 49 year old female with two episodes of postmenopausal bleeding. Pelvic ultrasound showed a slightly thickened endometrium. It was recommended to undergo D&C hysteroscopy. Risks of infection, bleeding, perforation, and possible pathology are reviewed. Patient voices understanding and agrees to proceed. Review of Systems Review of Systems: not repeated day of surgery; patient states no changes in status PMFSH Past Medical History Medical History (Updated 05/30/25 @ 08:09 by Tran Londono MD) (normal spontaneous vaginal delivery) x4 Crohn's disease History of DVT (deep vein thrombosis) Rheumatoid arthritis, juvenile Depression Surgical History Surgical History (Updated 05/30/25 @ 08:08 by Tran Londono MD) History of ankle fusion Status post laparoscopic cholecystectomy Social History Social History Smoking status: Never smoker Alcohol intake: current Drinks per week: 1 Living arrangements: with family Spiritual care concerns: No Meds Home Medications and Allergies Home Medications ?Medication ?Instructions ?Recorded ?Confirmed ?Type cyanocobalamin (vitamin B-12) 1,000 mcg IM MONTHLY 05/23/25 05/23/25 History 1,000 mcg/mL injection solution estradiol 0.01% (0.1 mg/gram) 1 appful vaginal WEEKLY 05/23/25 05/23/25 History vaginal cream sulfadiazine 500 mg tablet 500 mg PO Q6H 05/23/25 05/23/25 History ubrogepant 100 mg tablet (Ubrelvy) 100 mg PO PRN MIGRAINES 05/23/25 05/23/25 History ustekinumab 90 mg/mL subcutaneous 90 mg subcut MONTHLY 05/23/25 05/23/25 History syringe (Stelara) Allergies Allergy/AdvReac Type Severity Reaction Status Date / Time Penicillins Allergy Unknown Itching Verified 05/23/25 12:03 NSAIDS (Non-Steroidal AdvReac Unknown Other Verified 05/23/25 12:06 Anti-Inflamma Exam Const: General: healthy appearing and alert Orientation/consciousness: patient oriented x3 Resp: Effort & Inspection: normal respiratory effort Auscultation: clear to auscultation bilaterally Cardio: Rate: regular rate Rhythm: regular rhythm GI: GI Palp: Yes Soft to palpation, No Tenderness to palpation present (GI) and No Palpable mass present : External Female Exam: normal external appearance Speculum Exam - Vagina: normal appearance of the vagina and normal vaginal discharge Speculum Exam - Cervix: normal appearance of the cervix Bimanual exam- vagina & uterus: uterine size normal and consistency normal Bimanual Exam- Adnexa, other: normal adnexae and No adnexal tenderness Neuro: General: patient oriented x3 Assessment and Plan Assessment and plan (1) Post-menopausal bleeding: Code(s): N95.0 - Postmenopausal bleeding Status: Acute Assessment and Plan: plan to proceed with D&C hysteroscopy
[2025-05-30 08:58] VITALS: BP 130/62; PULSE 74; RESP 16; TEMP 36.2; O2SAT 100
[2025-05-30] MEDS: ACETAMINOPHEN 500 MG TABLET 1000 MG PO (09:00)
--- NOTE | 2025-05-30 09:43 | WPDANESEPPF ---
Anes - Initial Pre Proc Eval Procedure: Operation Date: 05/30/25 11:00 Proposed Procedures p Hysteroscopy Dilation and Curettage - Tran Londono MD Date/Time: 05/30/25 09:43 Surgeon: Tran Londono MD Pre Op Diagnosis: post menopausal bleeding Patient Data Age: 49 Gender: F Height: 1.68 m Weight: 66.3 kg Last Vital Signs Temp 36.2 C L 05/30/25 08:58 Pulse 74 05/30/25 08:58 Resp 16 05/30/25 08:58 BP 130/62 05/30/25 08:58 Pulse Ox 100 05/30/25 08:58 O2 Del Method Room Air 05/30/25 08:58 Allergies Allergy/AdvReac Type Severity Reaction Status Date / Time Penicillins Allergy Unknown Itching Verified 05/23/25 12:03 NSAIDS (Non-Steroidal AdvReac Unknown Other Verified 05/23/25 12:06 Anti-Inflamma Home Medications ?Medication ?Instructions ?Recorded ?Confirmed ?Type cyanocobalamin (vitamin B-12) 1,000 mcg IM MONTHLY 05/23/25 05/23/25 History 1,000 mcg/mL injection solution estradiol 0.01% (0.1 mg/gram) 1 appful vaginal WEEKLY 05/23/25 05/23/25 History vaginal cream sulfadiazine 500 mg tablet 500 mg PO Q6H 05/23/25 05/23/25 History ubrogepant 100 mg tablet (Ubrelvy) 100 mg PO PRN MIGRAINES 05/23/25 05/23/25 History ustekinumab 90 mg/mL subcutaneous 90 mg subcut MONTHLY 05/23/25 05/23/25 History syringe (Stelara) Patient hx anesthesia problems: none Family hx anesthesia problems: none Results Review: All pre-operative results and documents have been reviewed as part of the pre-operative evaluation. [facility] Past Medical History Medical History (normal spontaneous vaginal delivery) x4 Crohn's disease History of DVT (deep vein thrombosis) Rheumatoid arthritis, juvenile Depression Surgical History Surgical History History of ankle fusion Status post laparoscopic cholecystectomy Social History Social History Smoking status: Never smoker Alcohol intake: current Drinks per week: 1 Living arrangements: with family Spiritual care concerns: No Anes - Eval Final PreProcedure Day of Procedure 05/30/25 09:43 Patient weight: normal Heart: regular rate and rhythm Lungs: clear to auscultation Airway: Mallampati scale class II Neurological: alert and oriented Last oral intake: >/= 8 hours ASA classification: II Emergent: no Anesthetic plan: proceed Anesthesia type and monitoring: general GIVS and standard monitoring Results Review: All pre-operative results and documents have been reviewed as part of the pre-operative evaluation. Informed Consent: The patient's anesthetic plan and its attendant risks and benefits were discussed with the patient/family/POA. Questions were solicited and answers provided to the satisfaction of the patient/family/POA.
--- NOTE | 2025-05-30 09:59 | S_PTH ---
PATIENT: Sophia Rodriguez LOC: [facility] U#:[id number] AGE/SX: 49/F ROOM: RE05/30/[address]: Tran Londono MD : 1975 BED: DIS: 05/30/2025 SPEC #: [id number] RECD: 05/30/25 11:48 STATUS: DIOGENES REQ #: [id number] ELVIA: 05/30/25 09:[address]: Tran Londono DEPT: [facility] Surgical RECD BY: Jessica Jarvis ENTERED: 05/30/25 11:48 SP TYPE: Surgical OTHR DR: Maxime Pryor, JrDena, PA Tissues: A - Endometrial Curettings Procedures: Hematoxylin and Eosin Stain Gross and Microscopic Level 4
[2025-05-30 10:06] VITALS: BP 112/69; PULSE 69; RESP 14; O2SAT 100
[2025-05-30] MEDS: LACTATED RINGERS 1,000 ML 30 ML IV CONT (10:06)
--- NOTE | 2025-05-30 10:08 | W.PM.PROC2 ---
Procedure Note - Detailed Date of Procedure 05/30/25 Pre-op Diagnosis post menopausal bleeding Post-op Diagnosis Same Procedure Performed D&C hysteroscopy Surgeon Tran Londono MD Anesthesia MAC Findings The uterus sounds to 8cm. The cervix is very stenotic. The endometrium was atrophic. Description of Procedure The patient was taken to the operating room and placed under anesthesia in the dorsal lithotomy position. She was prepped and draped in the usual sterile fashion. [place] speculum was placed in the vagina and the cervix grasped on the anterior lip with tenaculum. The internal cervical stenosis is noted. The cervix was serially dilated to of or Hegar. The uterus is then sounded to 8cm. The diagnostic hysteroscope was placed and with the above-stated findings it was removed. The sharp curette would not pass the internal os. The cervix was serially dilated to a 6 Hegar. The endometrium was then curetted with a sharp curette until a good uterine cry was noted in all areas. Instruments are removed. Sponge, needle, and instrument counts are correct per the OR staff. The patient was taken to recovery in stable condition. Estimated Blood Loss 5 Drains No Packing No Pathology Yes (Endometrial curettings) Complications No immediate complications Condition Stable Disposition PACU
[2025-05-30 10:20] VITALS: BP 110/70; PULSE 66; RESP 14; O2SAT 100
[2025-05-30] MEDS: fentaNYL CITRATE INJ (*CRX) 100 MCG/2 ML VIAL 25 MCG IV PUSH ×4 (10:23→10:32)
[2025-05-30 10:50] VITALS: BP 116/62; PULSE 54; RESP 14; O2SAT 100
[2025-05-30] MEDS: oxyCODONE HCL (*CRX) 5 MG TAB IR PO (10:50)
[2025-05-30 11:20] VITALS: BP 115/60; PULSE 64; RESP 14
== END 2025-05-30 11:37 | disposition home or self-care (01) ==
PROVIDERS: PCP Physician Assistant; Visit Provider Obstetrics & Gynecology Gynecology
PROC: 0U5B8ZZ Destruction of Endometrium, Via Natural or Artificial Opening Endoscopic (ICD-10-PCS; CPT 58563; principal; 2025-05-30 11:00)
DX: N88.2 Stricture and stenosis of cervix uteri (principal); K50.90 Crohn's disease, unspecified, without complications; M08.00 Unspecified juvenile rheumatoid arthritis of unspecified site; F32.A Depression, unspecified; Z98.890 Other specified postprocedural states; Z90.49 Acquired absence of other specified parts of digestive tract; Z86.718 Personal history of other venous thrombosis and embolism
CPT/HCPCS: 58558; 88305; A9270; J1100; J1596; J2003; J2250; J2371; J2405; J2704; J3010; J7120